=== PATIENT | male | born 1940 | race Caucasian/White ===

== ENCOUNTER 2016-07-12 16:12 | Inpatient (IN) | payer MEDICARE, OTHER ==
[2016-07-12] MEDS ORDERED: Furosemide 20 MG/2 ML VIAL IVPUSH ONE (16:31)
[2016-07-12] MEDS ORDERED: Albuterol 0.083% 2.5 MG/3 ML Neb Soln NEB PRN (17:20)
[2016-07-12] MEDS ORDERED: traZODone 50 MG Tab PO PRN (17:20)
[2016-07-12] MEDS ORDERED: ALPRAZolam 0.5 MG Tab PO PRN (17:20)
[2016-07-12] MEDS ORDERED: Polyethylene Glycol 3350 Powder 17 GM Packet PO PRN (17:20)
[2016-07-12] MEDS: Albuterol 0.083% 2.5 MG/3 ML Neb Soln NEB SCH (18:54)
--- NOTE | 2016-07-12 19:31 | PCM.HP ---
H&P History of Present Illness - General Date of Service: 07/12/16 Admit Problem/Dx: Admission Diagnosis/Problem Admission Diagnosis/Problem Anemia Source of Information: Patient History Limitations: Reports: No limitations - History of Present Illness Initial Comments - Free Text/Narative: Mr. Walter is a 76 yo male with a presumed chronic GI bleeding for which he has previously received a transfusion of 5 units of blood with additional PMH of hypertension, CHF, atrial fibrillation, severe COPD, TANVI, hyperlipidemia, restless leg syndrome, peripheral neuropathy, CVA, BPH, and osteoarthritis who presented to clinic today for an INR check and requested a hemoglobin check as well. He has been increasingly pale over the past couple weeks leading his to believe he was anemic. He admits that his breathing has been worse as well and that his functional status has decreased. He has had no chest pain or lightheadedness upon standing. He did have a black stool about 6 weeks ago after his last blood transfusion but none since. He has seen GI and both EGD and colonoscopy were discussed. After reviewing the risks and benefits, he has elected not to proceed with this. Instead, he has chosen to do intermittent transfusions. His last was 6 weeks ago and his hemoglobin was most recently checked around that time. - Related Data Allergies/Adverse Reactions: Allergies Allergy/AdvReac Type Severity Reaction Status Date / Time No Known Allergies Allergy Verified 07/12/16 16:38 Home Medications: Home Meds Albuterol [Ventolin HFA] 2 puff INH Q4H PRN 08/12/13 [History] Aspirin 325 mg PO DAILY 08/12/13 [History] Benazepril [Lotensin] 20 mg PO DAILY 08/12/13 [History] Clotrimazole/Betamethasone Dip [Lotrisone Cream] 1 applic TOP BID 08/12/13 [ History] Furosemide [Lasix] 80 tab PO DAILY 08/12/13 [History] Pramipexole [Mirapex] 2 mg PO BEDTIME 08/12/13 [History] Tiotropium [Spiriva] 18 mcg INH DAILY 08/12/13 [History] Albuterol Sulfate 2.5 mg NEB DAILY PRN 05/06/15 [History] Amitriptyline [Elavil] 10 mg PO BEDTIME 05/06/15 [History] Arformoterol [Brovana] 15 mcg NEB BID 05/06/15 [History] Budesonide [Pulmicort] 0.5 mg NEB BID 05/06/15 [History] Omeprazole [Prilosec] 20 mg PO DAILY 05/06/15 [History] Simvastatin [Zocor] 10 mg PO BEDTIME 05/06/15 [History] Theophylline [Vadim-24] 200 mg PO BID 05/06/15 [History] ALPRAZolam [Xanax] 0.5 mg PO TID PRN 02/03/16 [History] Diltiazem HCl [Diltiazem 12Hr ER] 120 mg DAILY 02/03/16 [History] Ipratropium [Atrovent] 0.5 mg NEB Q6HRRT 02/03/16 [History] Tamsulosin [Flomax] 0.4 mg BEDTIME 02/03/16 [History] Warfarin [Coumadin] 5 mg ASDIRECTED 02/03/16 [History] predniSONE [Prednisone] 5 mg PO DAILY 02/03/16 [History] traZODone HCl [Trazodone HCl] 25 mg BEDTIME PRN 02/03/16 [History] Cyanocobalamin (Vitamin B-12) [B-12] 1,000 mcg PO DAILY 06/01/16 [History] Ferrous Sulfate 325 mg PO DAILY 06/01/16 [History] Furosemide [Lasix] 40 mg PO DAILY@1200 06/01/16 [History] Melatonin 10 mg PO BEDTIME 06/01/16 [History] Polyethylene Glycol 3350 [MiraLAX] 17 gm PO DAILY PRN 06/01/16 [History] Pramipexole Di-HCl [Mirapex] 1 mg PO BEDTIME 06/01/16 [History] Cyanocobalamin (Vitamin B-12) [Cyanocobalamin Injection] 1,000 mcg IJ WEEKLY [History] Past Medical History HEENT History: Reports: None Cardiovascular History: Reports: Afib, Heart Failure, High cholesterol, Hypertension Respiratory History: Reports: COPD, Sleep apnea, SOB Gastrointestinal History: Reports: GERD Genitourinary History: Reports: BPH Musculoskeletal History: Reports: Arthritis, Back pain, chronic Neurological History: Reports: CVA, Neuropathy, peripheral, Other (see below) ( restless leg syndrome) Psychiatric History: Reports: Depression, Other (see below) Other Psychiatric History: Sleeping disorder, has a cpap Endocrine/Metabolic History: Reports: Obesity/BMI 30+ Hematologic History: Reports: None Immunologic History: Reports: None Oncologic (Cancer) History: Reports: None Dermatologic History: Reports: None - Infectious Disease History Infectious Disease History: Reports: None - Past Surgical History HEENT Surgical History: Reports: Cataract surgery, Tonsillectomy Musculoskeletal Surgical History: Reports: Shoulder surgery, Other (see below) ( knee surgery) Social & Family History - Family History Cardiac: Reports: CAD Oncologic: Reports: Colon - Tobacco Use Smoking Status *Q: Former Smoker Years of Tobacco use: 50 Packs/Tins Daily: 2 - Caffeine Use Caffeine Use: Reports: None - Alcohol Use Alcohol Use History: Yes Days Per Week of Alcohol Use: 0 Alcohol Use in Last Twelve Months: No - Recreational Drug Use Recreational Drug Use: No - Living Situation & Occupation Living situation: Reports: , with significant other Occupation: retired H&P Review of Systems - Review of Systems: Review Of Systems: See Below General: Reports: no symptoms HEENT: Reports: no symptoms Pulmonary: Reports: Shortness of Breath. Denies: Wheezing, Cough Cardiovascular: Reports: no symptoms Gastrointestinal: Reports: No symptoms Genitourinary: Reports: no symptoms Musculoskeletal: Reports: no symptoms Skin: Reports: no symptoms Psychiatric: Reports: no symptoms Neurological: Reports: No Symptoms Hematologic/Lymphatic: Reports: no symptoms Exam - Exam Exam: See Below - Vital Signs Vital Signs: Last Vital Signs Temp 36.6 C 07/12/16 18:48 Pulse 72 07/12/16 19:00 Resp 20 07/12/16 19:00 BP 118/59 L 07/12/16 19:00 Pulse Ox 92 L 07/12/16 16:38 Weight: 134.173 kg - Exam General: alert, oriented, cooperative, other (very pale) HEENT: Conjunctiva clear, Mucosa moist & pink, Pupils equal, Pupils reactive Neck: supple, trachea midline. No: lymphadenopathy, thyromegaly Lungs: Clear to auscultation, Normal respiratory effort, Decreased breath sounds Cardiovascular: regular rate, normal S1, normal S2, irregular rhythm. No: systolic murmur, diastolic murmur Abdomen: normal bowel sounds, soft. No: distention, tenderness Extremities: normal inspection, normal pulses, edema (2+ bilaterally) Skin: warm, dry, intact Neurological: cranial nerves intact, normal speech. No: focal deficit - Patient Data Lab Results last 24 hrs: Laboratory Results - last 24 hr 07/12/16 Range/Units 16:55 Blood Type B POSITIVE Gel Antibody Screen Negative Crossmatch See Detail *Q Meaningful Use (ADM) - VTE *Q VTE Criteria *Q: VTE Anticoagulation Contraindications: Med/tx not indicated/need - Stroke *Q Stroke Criteria *Q: - AMI *Q AMI Criteria *Q: - Problem List (1) Symptomatic anemia SNOMED Code(s): 144609105 ICD Code: D64.9 - ANEMIA, UNSPECIFIED Status: Acute Current Visit: Yes Problem Details: - With the patient's history and a hemoglobin of 6.2, I did not feel it would be acceptable to wait until tomorrow for his transfusion. - Suspect the anemia is secondary to chronic GI bleeding. The patient has seen GI and has decided not to go ahead with any further evaluation to identify the cause. - Patient will receive 2 units PRBCs tonight. Recheck CBC in am to determine whether he can be discharged tomorrow. - Continue iron supplementation. (2) Hypertension SNOMED Code(s): 98599595 ICD Code: I10 - ESSENTIAL (PRIMARY) HYPERTENSION Status: Chronic Current Visit: Yes Problem Details: - BP slightly low on admission. - Will hold all antihypertensives for now. - Will likely need to restart his diltiazem in the morning to avoid any risk of putting him into a-fib with RVR. - Transfusion should improve his BP as well. Will fluid bolus PRN. Qualifiers: Hypertension type: essential hypertension Qualified Code(s): I10 - Essential (primary) hypertension (3) Heart failure SNOMED Code(s): 27303412 ICD Code: I50.9 - HEART FAILURE, UNSPECIFIED Status: Chronic Current Visit: Yes Problem Details: - No evidence of CHF exacerbation. - Will give a dose of IV lasix between the 2 units. - Will continue home PO lasix. - Otherwise, hold other medications until tomorrow am. Will add them back as able depending on his BPs. Qualifiers: Heart failure type: diastolic Heart failure chronicity: chronic Qualified Code(s): I50.32 - Chronic diastolic (congestive) heart failure (4) Atrial fibrillation SNOMED Code(s): 64827205 ICD Code: I48.91 - UNSPECIFIED ATRIAL FIBRILLATION Status: Chronic Current Visit: Yes Problem Details: - Rate currently controlled. - INR is therapeutic. - Continue warfarin. - Restart diltiazem in the am. Qualifiers: Atrial fibrillation type: unspecified Qualified Code(s): I48.91 - Unspecified atrial fibrillation (5) COPD (chronic obstructive pulmonary disease) SNOMED Code(s): 00958912 ICD Code: J44.9 - CHRONIC OBSTRUCTIVE PULMONARY DISEASE, UNSPECIFIED Status : Chronic Current Visit: Yes Problem Details: - Severe COPD, which is oxygen dependent. - Continue oxygen supplementation. - Continue home inhaler regimen, prednisone, and theophylline. Qualifiers: COPD type: unspecified COPD Qualified Code(s): J44.9 - Chronic obstructive pulmonary disease, unspecified (6) TANVI (obstructive sleep apnea) SNOMED Code(s): 68170557 ICD Code: G47.33 - OBSTRUCTIVE SLEEP APNEA (ADULT) (PEDIATRIC) Status: Chronic Current Visit: Yes Problem Details: - Will have his bring his CPAP in. (7) Hyperlipidemia SNOMED Code(s): 66386958 ICD Code: E78.5 - HYPERLIPIDEMIA, UNSPECIFIED Status: Chronic Current Visit: Yes Problem Details: Continue simvastatin. Qualifiers: Hyperlipidemia type: unspecified Qualified Code(s): E78.5 - Hyperlipidemia , unspecified (8) Restless leg syndrome SNOMED Code(s): 80262938 ICD Code: G25.81 - RESTLESS LEGS SYNDROME Status: Chronic Current Visit: Yes Problem Details: - Continue mirapex. (9) Peripheral neuropathy SNOMED Code(s): 761665820 ICD Code: G62.9 - POLYNEUROPATHY, UNSPECIFIED Status: Chronic Current Visit: Yes Problem Details: - Currently not on any medications for this. Qualifiers: Peripheral neuropathy type: polyneuropathy, unspecified Qualified Code(s): G62.9 - Polyneuropathy, unspecified (10) Cerebrovascular disease SNOMED Code(s): 14373157 ICD Code: I67.9 - CEREBROVASCULAR DISEASE, UNSPECIFIED Status: Chronic Current Visit: Yes Problem Details: - H/O stroke without current symptoms. - Hold ASA for now. Will look into whether he truly needs the full dose aspirin , especially in the setting of his presumed GI bleed. (11) BPH (benign prostatic hyperplasia) SNOMED Code(s): 003677779, 593847334 ICD Code: N40.0 - BENIGN PROSTATIC HYPERPLASIA WITHOUT LOWER URINRY TRACT SYMP Status: Chronic Current Visit: Yes Problem Details: - Hold flomax for now. - Consider restarting if BP improves. Qualifiers: Prostatic enlargement morphology: unspecified morphology Lower urinary tract symptom presence: symptoms absent Qualified Code(s): N40.0 - Benign prostatic hyperplasia without lower urinary tract symptoms (12) Osteoarthritis SNOMED Code(s): 725493911 ICD Code: M19.90 - UNSPECIFIED OSTEOARTHRITIS, UNSPECIFIED SITE Status: Chronic Current Visit: Yes Problem Details: - No current symptoms. - Tylenol PRN. Qualifiers: Osteoarthritis location: unspecified site Osteoarthritis type: unspecified Qualified Code(s): M19.90 - Unspecified osteoarthritis, unspecified site (13) Insomnia SNOMED Code(s): 711031920 ICD Code: G47.00 - INSOMNIA, UNSPECIFIED Status: Chronic Current Visit: Yes Problem Details: - Continue amitriptyline, trazodone, and PRN xanax. Qualifiers: Insomnia type: unspecified Qualified Code(s): G47.00 - Insomnia, unspecified Problem List Initiated/Reviewed/Updated: Yes Orders Last 24hrs: Active Orders 24 hr Category Date Time Status Admission Status [Patient Status] [ADT] Routine ADT 07/12/16 16:26 Active Notify Provider Vital Signs [RC] 02,06,10,14,18,22 Care 07/12/16 16:37 Active Up With Assistance [RC] 08,20 Care 07/12/16 16:36 Active VTE/DVT Education [RC] .PRN Care 07/12/16 16:38 Active Vital Signs [RC] 02,06,10,14,18,22 Care 07/12/16 16:36 Active Regular Diet [DIET] Diet 07/12/16 Dinner Active CBC WITH AUTO DIFF [HEME] AM Lab 07/13/16 05:11 Ordered RED BLOOD CELLS LP [BBK] Stat Lab 07/12/16 16:55 Results TYPE AND SCREEN [BBK] Stat Lab 07/12/16 16:55 Results ALPRAZolam [Xanax] Med 07/12/16 17:20 Active 0.25 mg PO TID PRN Albuterol [Proventil Neb Soln] Med 07/12/16 17:20 Active 2.5 mg NEB DAILY PRN Albuterol [Proventil Neb Soln] Med 07/12/16 19:00 Active 2.5 mg NEB Q6HRRT Amitriptyline [Elavil] Med 07/12/16 20:00 Active 10 mg PO BEDTIME Budesonide [Pulmicort] Med 07/12/16 20:00 Active 0.5 mg NEB BIDRT Cyanocobalamin (Vitamin B12) [Vitamin B12] Med 07/13/16 08:00 Active 1,000 mcg PO DAILY Ferrous Sulfate Med 07/13/16 08:00 Active 325 mg PO DAILY Furosemide [Lasix] Med 07/13/16 12:00 Active 40 mg PO DAILY@1200 Furosemide [Lasix] Med 07/13/16 08:00 Active 80 mg PO DAILY Ipratropium [Atrovent] Med 07/12/16 20:00 Active 0.5 mg NEB QIDRT Melatonin Med 07/12/16 20:00 Active 9 mg PO BEDTIME Omeprazole Med 07/13/16 07:00 Active 20 mg PO ACBRK Polyethylene Glycol 3350 [MiraLAX] Med 07/12/16 17:20 Active 17 gm PO DAILY PRN Pramipexole [Mirapex] Med 07/12/16 20:00 Active 2 mg PO BEDTIME Simvastatin [Zocor] Med 07/12/16 20:00 Active 10 mg PO BEDTIME Theophylline [Theophylline Anhydrous] Med 07/12/16 20:00 Active 200 mg PO BID Tiotropium [Spiriva HandiHaler] Med 07/13/16 08:00 Active 18 mcg INH DAILY Warfarin [Coumadin] Med 07/12/16 20:00 Active 5 mg PO BEDTIME predniSONE Med 07/13/16 08:00 Active 5 mg PO DAILY traZODone Med 07/12/16 17:20 Active 25 mg PO BEDTIME PRN Anticoagulation Contraindications VTE [AST] Per Unit Oth 07/12/16 16:36 Ordered Routine Blood Transfusion Reflex Orders [OM.PC] Routine Oth 07/12/16 16:31 Ordered DVT/VTE Prophylaxis Reflex [OM.PC] Routine Oth 07/12/16 16:36 Ordered Transfuse Red Blood Cells [COMM] Routine Oth 07/12/16 16:31 Ordered Resuscitation Status Routine Resus Stat 07/12/16 16:36 Ordered Medication Orders Albuterol (Proventil Neb Soln) 2.5 mg NEB Q6HRRT JEAN-PAUL Last Admin: 07/12/16 18:54 Dose: 2.5 mg Albuterol (Proventil Neb Soln) 2.5 mg NEB DAILY PRN PRN Reason: Dyspnea Alprazolam (Xanax) 0.25 mg PO TID PRN PRN Reason: Anxiety Amitriptyline HCl (Elavil) 10 mg PO BEDTIME JEAN-PAUL Budesonide (Pulmicort) 0.5 mg NEB BIDRT JEAN-PAUL Cyanocobalamin (Vitamin B12) 1,000 mcg PO DAILY JEAN-PAUL Ferrous Sulfate (Ferrous Sulfate) 325 mg PO DAILY JEAN-PAUL Furosemide (Lasix) 40 mg PO DAILY@1200 JEAN-PAUL Furosemide (Lasix) 80 mg PO DAILY JEAN-PAUL Ipratropium [place] (Atrovent) 0.5 mg NEB QIDRT JEAN-PAUL Melatonin (Melatonin) 9 mg PO BEDTIME JEAN-PAUL Omeprazole (Omeprazole) 20 mg PO ACBRK JEAN-PAUL Polyethylene Glycol (Miralax) 17 gm PO DAILY PRN PRN Reason: Constipation Pramipexole Dihydrochloride (Mirapex) 2 mg PO BEDTIME JEAN-PAUL Prednisone (Prednisone) 5 mg PO DAILY JEAN-PAUL Simvastatin (Zocor) 10 mg PO BEDTIME JEAN-PAUL Theophylline (Theophylline Anhydrous) 200 mg PO BID JEAN-PAUL Tiotropium [place] (Spiriva Handihaler) 18 mcg INH DAILY JEAN-PAUL Trazodone HCl (Trazodone) 25 mg PO BEDTIME PRN PRN Reason: Insomnia Warfarin Sodium (Coumadin) 5 mg PO BEDTIME JEAN-PAUL Assessment/Plan Comment:: 76 yo male admitted for a blood transfusion for management of symptomatic anemia in the setting of an inability to get this done in a timely manner as an outpatient. Will transfuse 2 units and recheck in the am. Otherwise, see details under problems above. Patient will be admitted under observation as I suspect that he will be dismissed tomorrow. No indication for VTE prophylaxis as he has a therapeutic INR. Patient is DNR/DNI as discussed on admission.
[2016-07-12] MEDS: Budesonide 0.5 MG/2 ML Neb Susp NEB SCH (19:47)
[2016-07-12] MEDS: Melatonin 3 MG Tab PO SCH (19:47)
[2016-07-12] MEDS: Pramipexole 0.5 MG Tab PO SCH (19:47)
[2016-07-12] MEDS: Amitriptyline 10 MG Tab PO SCH (19:47)
[2016-07-12] MEDS: Simvastatin 10 MG Tab PO SCH (19:47)
[2016-07-12] MEDS: Ipratropium 0.02% 0.5 MG/2.5 ML Neb Soln NEB SCH (19:47)
[2016-07-12] MEDS: Warfarin 5 MG Tab PO SCH (19:47)
[2016-07-12] MEDS ORDERED: Non-Formulary Medication 1 Each (Melatonin [Melatonin] 10 MG) PO SCH (20:00)
[2016-07-12] MEDS ORDERED: Furosemide 40 MG/4 ML VIAL ONE (21:26)
[2016-07-12] MEDS: THEOPHYLLINE 100 MG PO SCH (21:26)
[2016-07-13] MEDS: Albuterol 0.083% 2.5 MG/3 ML Neb Soln NEB SCH ×4 (01:19→21:02)
[2016-07-13] MEDS ORDERED: Omeprazole 20 MG Cap.CR PO SCH (07:00)
[2016-07-13] MEDS: Budesonide 0.5 MG/2 ML Neb Susp NEB SCH ×2 (07:21→21:00)
[2016-07-13] MEDS: Ipratropium 0.02% 0.5 MG/2.5 ML Neb Soln NEB SCH ×4 (07:21→21:00)
[2016-07-13] MEDS ORDERED: ALPRAZolam 0.25 MG Tab PO PRN (08:38)
[2016-07-13] MEDS ORDERED: Furosemide 20 MG/2 ML VIAL IVPUSH ONE ×2 (09:11→13:15)
[2016-07-13] MEDS: Diltiazem 120 MG Cap.CD PO SCH (09:24)
[2016-07-13] MEDS: Ferrous Sulfate 325 MG Tab PO SCH (09:25)
[2016-07-13] MEDS: Furosemide 40 MG Tab PO SCH (09:25)
[2016-07-13] MEDS: Cyanocobalamin (Vitamin B12) 1,000 MCG Tab PO SCH (09:25)
[2016-07-13] MEDS: predniSONE 5 MG Tab PO SCH (09:25)
[2016-07-13] MEDS: Tiotropium Inhaler 18 MCG Inhalation Powder Cap Kit of 5 INH SCH (09:25)
[2016-07-13] MEDS: THEOPHYLLINE 100 MG PO SCH ×2 (09:25→21:00)
[2016-07-13] MEDS ORDERED: Furosemide 40 MG Tab PO SCH (12:00)
--- NOTE | 2016-07-13 12:57 | PCM.PN ---
- General Info Date of Service: 07/13/16 Subjective Update: Feels the same as yesterday. Did not sleep well so is quite tired today. Otherwise, no new complaints. - Review of Systems General: Reports: No Symptoms HEENT: Reports: no symptoms Pulmonary: Reports: no symptoms Cardiovascular: Reports: No Symptoms Gastrointestinal: Reports: No symptoms Genitourinary: Reports: no symptoms Musculoskeletal: Reports: no symptoms Skin: Reports: no symptoms - Patient Data Vitals - most recent: Last Vital Signs Temp 37.7 C 07/13/16 11:35 Pulse 78 07/13/16 11:35 Resp 22 H 07/13/16 11:35 BP 130/64 07/13/16 11:35 Pulse Ox 96 07/13/16 06:00 Weight - most recent: 135.533 kg I&O - last 24 hours: Intake & Output 07/12/16 07/13/16 07/13/16 22:59 06:59 14:59 Intake Total 918 666 8965 Output Total 1575 975 Balance 657 -1275 335 Lab Results last 24 hrs: Laboratory Results - last 24 hr 07/12/16 07/13/16 Range/Units 16:55 06:35 WBC 9.7 (4.0-10.0) x10^3/uL RBC 2.84 L (4.5-6.0) x10^6/uL Hgb 6.9 L* (14.0-18.0) g/dL Hct 23.9 L (40.0-52.0) % MCV 84.2 (78.0-93.0) fL MCH 24.3 L (26.0-32.0) pg MCHC 28.9 L (32.0-36.0) g/dL RDW Coeff of Ignacio 15.9 H (10.0-15.0) % Plt Count 447 H (130-400) x10^3/uL Add Manual Diff Yes Neutrophils % (Manual) 72 (50-80) % Band Neutrophils % 6 (0-6) % Lymphocytes % (Manual) 21 L (25-50) % Eosinophils % (Manual) 1 (0-4) % Platelet Estimate Adequate Hypochromasia 3+ marked H Blood Type B POSITIVE Gel Antibody Screen Negative Crossmatch See Detail Med Orders - Current: Current Medications Albuterol (Proventil Neb Soln) 2.5 mg NEB DAILY PRN PRN Reason: Dyspnea Albuterol (Proventil Neb Soln) 2.5 mg NEB QIDRT [facility] Alprazolam (Xanax) 0.25 mg PO TID PRN PRN Reason: Anxiety Amitriptyline HCl (Elavil) 10 mg PO BEDTIME [facility] Last Admin: 07/12/16 19:47 Dose: 10 mg Budesonide (Pulmicort) 0.5 mg NEB BIDRT [facility] Last Admin: 07/13/16 07:21 Dose: 0.5 mg Cyanocobalamin (Vitamin B12) 1,000 mcg PO DAILY [facility] Last Admin: 07/13/16 09:25 Dose: 1,000 mcg Diltiazem HCl (Cardizem Cd) 120 mg PO DAILY [facility] Last Admin: 07/13/16 09:24 Dose: 120 mg Ferrous Sulfate (Ferrous Sulfate) 325 mg PO DAILY [facility] Last Admin: 07/13/16 09:25 Dose: 325 mg Furosemide (Lasix) 40 mg PO DAILY@1200 [facility] Last Admin: 07/13/16 12:03 Dose: 40 mg Furosemide (Lasix) 80 mg PO DAILY [facility] Last Admin: 07/13/16 09:25 Dose: 80 mg Ipratropium [place] (Atrovent) 0.5 mg NEB QIDRT [facility] Last Admin: 07/13/16 10:54 Dose: 0.5 mg Melatonin (Melatonin) 9 mg PO BEDTIME [facility] Last Admin: 07/12/16 19:47 Dose: 9 mg Omeprazole (Omeprazole) 20 mg PO DAILY@0700 [facility] Polyethylene Glycol (Miralax) 17 gm PO DAILY PRN PRN Reason: Constipation Pramipexole Dihydrochloride (Mirapex) 2 mg PO BEDTIME [facility] Last Admin: 07/12/16 19:47 Dose: 2 mg Prednisone (Prednisone) 5 mg PO DAILY [facility] Last Admin: 07/13/16 09:25 Dose: 5 mg Simvastatin (Zocor) 10 mg PO BEDTIME [facility] Last Admin: 07/12/16 19:47 Dose: 10 mg Theophylline (Theophylline Anhydrous) 200 mg PO BID [facility] Last Admin: 07/13/16 09:25 Dose: 200 mg Tiotropium [place] (Spiriva Handihaler) 18 mcg INH DAILY [facility] Last Admin: 07/13/16 09:25 Dose: 18 mcg Trazodone HCl (Trazodone) 25 mg PO BEDTIME PRN PRN Reason: Insomnia Last Admin: 07/12/16 21:25 Dose: 25 mg Warfarin Sodium (Coumadin) 5 mg PO BEDTIME [facility] Last Admin: 07/12/16 19:47 Dose: 5 mg Discontinued Medications Albuterol (Proventil Neb Soln) 2.5 mg NEB Q6HRRT [facility] Last Admin: 07/13/16 07:20 Dose: 2.5 mg Alprazolam (Xanax) 0.25 mg PO TID PRN PRN Reason: Anxiety Last Admin: 07/12/16 23:57 Dose: 0.25 mg Furosemide (Lasix) 20 mg IVPUSH ONETIME ONE Stop: 07/12/16 16:32 Last Admin: 07/12/16 23:25 Dose: 20 mg Furosemide (Lasix) Confirm Administered Dose 40 mg .ROUTE .STK-MED ONE Stop: 07/12/16 21:27 Last Admin: 07/12/16 21:41 Dose: Not Given Furosemide (Lasix) 20 mg IVPUSH ONETIME ONE Stop: 07/13/16 09:12 Non-Formulary Medication (Melatonin [Melatonin]) 10 mg PO BEDTIME [facility] Omeprazole (Omeprazole) 20 mg PO ACBRK [facility] Last Admin: 07/13/16 06:19 Dose: 20 mg - Exam General: alert, cooperative, no acute distress HEENT: Pupils equal, Pupils reactive, Mucous membr. moist/pink Neck: supple, no thyromegaly. No: lymphadenopathy Lungs: Clear to auscultation, Normal respiratory effort Cardiovascular: Regular Rate, No Murmurs, Irregular Rhythm Abdomen: bowel sounds present, soft, no tenderness, no distension Extremities: normal pulses, edema (2+ bilaterally) Skin: warm, dry, intact - Problem List & Annotations (1) Symptomatic anemia SNOMED Code(s): 804728534 Code(s): D64.9 - ANEMIA, UNSPECIFIED Status: Acute Current Visit: Yes Annotation/Comment:: - Patient's hemoglobin did not respond appropriately to the 2 units. Do note that it was done at 2 different labs so the results cannot be directly compared. - Discussed option to transfer to [place] for further discussion and work-up with GI and pulmonology consults vs. transfusing another 2 units today and seeing what his hemoglobin does. - He prefers the latter. We will give him 2 units today and recheck his CBC this afternoon. - Continue iron supplementation. (2) Hypertension SNOMED Code(s): 51279981 Code(s): I10 - ESSENTIAL (PRIMARY) HYPERTENSION Status: Chronic Current Visit: Yes Qualifiers: Hypertension type: essential hypertension Qualified Code(s): I10 - Essential (primary) hypertension Annotation/Comment:: - BP better this admission. - Will restart his diltiazem today. - Will add back other antihypertensives as able. (3) Heart failure SNOMED Code(s): 35050562 Code(s): I50.9 - HEART FAILURE, UNSPECIFIED Status: Chronic Current Visit : Yes Qualifiers: Heart failure type: diastolic Heart failure chronicity: chronic Qualified Code(s): I50.32 - Chronic diastolic (congestive) heart failure Annotation/Comment:: - No evidence of CHF exacerbation. - Will give another dose of IV lasix between the 2 units. - Will continue home PO lasix. - Otherwise, hold other antihypertensives except for diltiazem. Will add them back as able depending on his BPs. (4) Atrial fibrillation SNOMED Code(s): 48134386 Code(s): I48.91 - UNSPECIFIED ATRIAL FIBRILLATION Status: Chronic Current Visit: Yes Qualifiers: Atrial fibrillation type: unspecified Qualified Code(s): I48.91 - Unspecified atrial fibrillation Annotation/Comment:: - Rate currently controlled. - INR is therapeutic. - Continue warfarin. - Restart diltiazem today. (5) COPD (chronic obstructive pulmonary disease) SNOMED Code(s): 35243801 Code(s): J44.9 - CHRONIC OBSTRUCTIVE PULMONARY DISEASE, UNSPECIFIED Status : Chronic Current Visit: Yes Qualifiers: COPD type: unspecified COPD Qualified Code(s): J44.9 - Chronic obstructive pulmonary disease, unspecified Annotation/Comment:: - Severe COPD, which is oxygen dependent. - Continue oxygen supplementation. - Continue home inhaler regimen, prednisone, and theophylline. (6) TANVI (obstructive sleep apnea) SNOMED Code(s): 19719613 Code(s): G47.33 - OBSTRUCTIVE SLEEP APNEA (ADULT) (PEDIATRIC) Status: Chronic Current Visit: Yes Annotation/Comment:: - On CPAP. (7) Hyperlipidemia SNOMED Code(s): 17799566 Code(s): E78.5 - HYPERLIPIDEMIA, UNSPECIFIED Status: Chronic Current Visit: Yes Qualifiers: Hyperlipidemia type: unspecified Qualified Code(s): E78.5 - Hyperlipidemia , unspecified Annotation/Comment:: Continue simvastatin. (8) Restless leg syndrome SNOMED Code(s): 21085000 Code(s): G25.81 - RESTLESS LEGS SYNDROME Status: Chronic Current Visit: Yes Annotation/Comment:: - Continue mirapex. (9) Peripheral neuropathy SNOMED Code(s): 889797166 Code(s): G62.9 - POLYNEUROPATHY, UNSPECIFIED Status: Chronic Current Visit: Yes Qualifiers: Peripheral neuropathy type: polyneuropathy, unspecified Qualified Code(s): G62.9 - Polyneuropathy, unspecified Annotation/Comment:: - Currently not on any medications for this. (10) Cerebrovascular disease SNOMED Code(s): 98723230 Code(s): I67.9 - CEREBROVASCULAR DISEASE, UNSPECIFIED Status: Chronic Current Visit: Yes Annotation/Comment:: - H/O stroke without current symptoms. - Hold ASA for now. Will look into whether he truly needs the full dose aspirin , especially in the setting of his presumed GI bleed. (11) BPH (benign prostatic hyperplasia) SNOMED Code(s): 690077651, 646773831 Code(s): N40.0 - BENIGN PROSTATIC HYPERPLASIA WITHOUT LOWER URINRY TRACT SYMP Status: Chronic Current Visit: Yes Qualifiers: Prostatic enlargement morphology: unspecified morphology Lower urinary tract symptom presence: symptoms absent Qualified Code(s): N40.0 - Benign prostatic hyperplasia without lower urinary tract symptoms Annotation/Comment:: - Hold flomax for now. - Consider restarting if BP improves. (12) Osteoarthritis SNOMED Code(s): 427675532 Code(s): M19.90 - UNSPECIFIED OSTEOARTHRITIS, UNSPECIFIED SITE Status: Chronic Current Visit: Yes Qualifiers: Osteoarthritis location: unspecified site Osteoarthritis type: unspecified Qualified Code(s): M19.90 - Unspecified osteoarthritis, unspecified site Annotation/Comment:: - No current symptoms. - Tylenol PRN. (13) Insomnia SNOMED Code(s): 700521991 Code(s): G47.00 - INSOMNIA, UNSPECIFIED Status: Chronic Current Visit: Yes Qualifiers: Insomnia type: unspecified Qualified Code(s): G47.00 - Insomnia, unspecified Annotation/Comment:: - Continue amitriptyline, trazodone, and PRN xanax. - Problem List Review Problem List Initiated/Reviewed/Updated: Yes - My Orders Last 24 Hours: My Active Orders 07/12/16 16:26 Admission Status [Patient Status] [ADT] Routine 07/12/16 16:31 Blood Transfusion Reflex Orders [OM.PC] Routine Transfuse Red Blood Cells [COMM] Routine 07/12/16 16:36 Up With Assistance [RC] 08,20 Vital Signs [RC] 02,06,10,14,18,22 Anticoagulation Contraindications VTE [AST] Per Unit Routine DVT/VTE Prophylaxis Reflex [OM.PC] Routine Resuscitation Status Routine 07/12/16 16:37 Notify Provider Vital Signs [RC] 02,06,10,14,18,22 07/12/16 16:38 VTE/DVT Education [RC] .PRN 07/12/16 16:55 RED BLOOD CELLS LP [BBK] Stat TYPE AND SCREEN [BBK] Stat 07/12/16 17:20 Albuterol [Proventil Neb Soln] 2.5 mg NEB DAILY PRN Polyethylene Glycol 3350 [MiraLAX] 17 gm PO DAILY PRN traZODone 25 mg PO BEDTIME PRN 07/12/16 20:00 Amitriptyline [Elavil] 10 mg PO BEDTIME Budesonide [Pulmicort] 0.5 mg NEB BIDRT Ipratropium [Atrovent] 0.5 mg NEB QIDRT Melatonin 9 mg PO BEDTIME Pramipexole [Mirapex] 2 mg PO BEDTIME Simvastatin [Zocor] 10 mg PO BEDTIME Theophylline [Theophylline Anhydrous] 200 mg PO BID Warfarin [Coumadin] 5 mg PO BEDTIME 07/12/16 Dinner Regular Diet [DIET] 07/13/16 08:00 Cyanocobalamin (Vitamin B12) [Vitamin B12] 1,000 mcg PO DAILY Ferrous Sulfate 325 mg PO DAILY Furosemide [Lasix] 80 mg PO DAILY Tiotropium [Spiriva HandiHaler] 18 mcg INH DAILY predniSONE 5 mg PO DAILY 07/13/16 08:29 Daily Weight [Height and Weight] [RC] 07 07/13/16 08:38 ALPRAZolam [Xanax] 0.25 mg PO TID PRN 07/13/16 09:10 Transfuse Red Blood Cells [COMM] Routine 07/13/16 09:16 Blood Transfusion Reflex Orders [OM.PC] Routine 07/13/16 09:30 Diltiazem [Cardizem CD] 120 mg PO DAILY 07/13/16 09:52 Blood Transfusion Reflex Orders [OM.PC] Routine 07/13/16 12:00 Furosemide [Lasix] 40 mg PO DAILY@1200 07/13/16 14:30 HEMOGLOBIN [HEME] Timed 07/13/16 15:00 Albuterol [Proventil Neb Soln] 2.5 mg NEB QIDRT 07/14/16 07:00 Omeprazole 20 mg PO DAILY@0700 - Assessment Assessment:: 76 yo male admitted under observation to undergo blood transfusion. Not really any better from a symptom or lab standpoint this am. - Plan Plan:: Will transfuse 2 units again and recheck Hgb this pm. Otherwise, see details under problems above. Patient will remain under observation for now as there is a chance he will be dismissed later; if he stays another night, will switch to acute. Reviewed again his complicated medical scenario. A progressive GI bleed is more life threatening in the immediate time period but having an EGD and/or colonoscopy does place him at risk for needing to be intubated and on a ventilator. I did review his case again with his professor of art, Dr. Olivera, and she agrees. He prefers to get the additional units today and see what happens with his hemoglobin after that. No indication for VTE prophylaxis as he has a therapeutic INR. Patient is DNR/DNI as discussed on admission.
[2016-07-13] MEDS ORDERED: Acetaminophen 325 MG Tab PO PRN (13:05)
--- NOTE | 2016-07-13 17:58 | PCM.SN ---
- Free Text/Narrative Note: Hemoglobin responded appropriately to the second 2 units. His UOP has been great. Will have him stay overnight since it took 4 units to improve his hemoglobin. Therefore, will also change his status to acute. Recheck CBC in the am. Anticipate dismissal tomorrow unless his hemoglobin drops again.
[2016-07-13] MEDS: Pramipexole 0.5 MG Tab PO SCH (20:59)
[2016-07-13] MEDS: Melatonin 3 MG Tab PO SCH (20:59)
[2016-07-13] MEDS: Simvastatin 10 MG Tab PO SCH (21:00)
[2016-07-13] MEDS: Amitriptyline 10 MG Tab PO SCH (21:00)
[2016-07-13] MEDS: Warfarin 5 MG Tab PO SCH (21:00)
[2016-07-14 06:31] VITALS: BP 148/63
[2016-07-14] MEDS ORDERED: Omeprazole 20 MG Cap.CR PO SCH (07:00)
[2016-07-14] MEDS: Albuterol 0.083% 2.5 MG/3 ML Neb Soln NEB SCH (07:20)
[2016-07-14] MEDS: Budesonide 0.5 MG/2 ML Neb Susp NEB SCH (07:21)
[2016-07-14] MEDS: Ipratropium 0.02% 0.5 MG/2.5 ML Neb Soln NEB SCH (07:21)
[2016-07-14] MEDS: predniSONE 5 MG Tab PO SCH (07:51)
[2016-07-14] MEDS: Ferrous Sulfate 325 MG Tab PO SCH (07:51)
[2016-07-14] MEDS: Diltiazem 120 MG Cap.CD PO SCH (07:52)
[2016-07-14] MEDS: Cyanocobalamin (Vitamin B12) 1,000 MCG Tab PO SCH (07:54)
[2016-07-14] MEDS: THEOPHYLLINE 100 MG PO SCH (07:54)
[2016-07-14] MEDS: Furosemide 40 MG Tab PO SCH (07:54)
[2016-07-14] MEDS: Tiotropium Inhaler 18 MCG Inhalation Powder Cap Kit of 5 INH SCH (07:55)
--- NOTE | 2016-07-14 08:37 | PCM.DCSUM1 ---
Discharge Summary - Hospital Course HPI Initial Comments: Mr. Walter is a 76 yo male who was admitted from clinic due to symptomatic anemia with a hemoglobin of 6.2 and an inability to get his transfusion done in a timely manner as an outpatient. He was not overtly symptomatic and felt his breathing was close to baseline. His had actually requested the test be done due to his pale appearance. He has a known GI bleed as the cause for his anemia and has seen GI previously. He has decided not to proceed with EGD or colonoscopy at this time. - Discharge Data Discharge Date: 07/14/16 Discharge Disposition: Home, Self-Care 01 Condition: Good - Discharge Diagnosis/Problem(s) (1) Symptomatic anemia SNOMED Code(s): 699343993 ICD Code: D64.9 - ANEMIA, UNSPECIFIED Status: Acute Current Visit: Yes Problem Details: Patient's hemoglobin did not respond initially to the first 2 units. Therefore, we did share another discussion about transfer to [place] for further discussions on work-up with GI and risk with pulmonology. He elected to receive another 2 units and see what happened with his hemoglobin. Therefore, these were given yesterday with an appropriate rise in the hemoglobin. His hemoglobin this morning has dropped slightly but <1 gram. He will follow-up on Monday for recheck hemoglobin and visit. Home iron supplementation was continued. (2) Hypertension SNOMED Code(s): 26665273 ICD Code: I10 - ESSENTIAL (PRIMARY) HYPERTENSION Status: Chronic Current Visit: Yes Problem Details: BP have improved to normal. Will restart all home medications upon discharge. Qualifiers: Hypertension type: essential hypertension Qualified Code(s): I10 - Essential (primary) hypertension (3) Heart failure SNOMED Code(s): 97115842 ICD Code: I50.9 - HEART FAILURE, UNSPECIFIED Status: Chronic Current Visit: Yes Problem Details: No evidence of CHF exacerbation. He has done well with the fluid load from the 4 units of blood. He did recieve a dose of IV lasix on the 2 days that he got the blood. He will be dismissed home on his usual medications. Qualifiers: Heart failure type: diastolic Heart failure chronicity: chronic Qualified Code(s): I50.32 - Chronic diastolic (congestive) heart failure (4) Atrial fibrillation SNOMED Code(s): 16941046 ICD Code: I48.91 - UNSPECIFIED ATRIAL FIBRILLATION Status: Chronic Current Visit: Yes Problem Details: Rate currently controlled. INR therapeutic on admission. His warfarin was continued and his diltiazem was continued without incident. 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 Oxygen supplementation was continued. His home inhaler regimen, prednisone, and theophylline were also continued. Qualifiers: COPD type: unspecified COPD Qualified Code(s): J44.9 - Chronic obstructive pulmonary disease, unspecified (6) TANVI (obstructive sleep apnea) SNOMED Code(s): 69713501 ICD Code: G47.33 - OBSTRUCTIVE SLEEP APNEA (ADULT) (PEDIATRIC) Status: Chronic Current Visit: Yes Problem Details: On CPAP. (7) Hyperlipidemia SNOMED Code(s): 49538368 ICD Code: E78.5 - HYPERLIPIDEMIA, UNSPECIFIED Status: Chronic Current Visit: Yes Problem Details: Simvastatin continued. Qualifiers: Hyperlipidemia type: unspecified Qualified Code(s): E78.5 - Hyperlipidemia , unspecified (8) Restless leg syndrome SNOMED Code(s): 32715778 ICD Code: G25.81 - RESTLESS LEGS SYNDROME Status: Chronic Current Visit: Yes Problem Details: Mirapex continued without indicent. (9) Peripheral neuropathy SNOMED Code(s): 668083934 ICD Code: G62.9 - POLYNEUROPATHY, UNSPECIFIED Status: Chronic Current Visit: Yes Problem Details: Currently not on any medications for this. Qualifiers: Peripheral neuropathy type: polyneuropathy, unspecified Qualified Code(s): G62.9 - Polyneuropathy, unspecified (10) Cerebrovascular disease SNOMED Code(s): 13299663 ICD Code: I67.9 - CEREBROVASCULAR DISEASE, UNSPECIFIED Status: Chronic Current Visit: Yes Problem Details: H/O stroke without current symptoms. Unclear why he is on the full dose aspirin. This has not been proven beneficial over low dose aspirin in stroke prevention and does have an increased risk of bleeding. Will hold off on any aspirin for now in light of the difficulty getting his hemoglobin up but consider starting the 81 mg dose when I see him in follow-up. (11) BPH (benign prostatic hyperplasia) SNOMED Code(s): 344225806, 402947320 ICD Code: N40.0 - BENIGN PROSTATIC HYPERPLASIA WITHOUT LOWER URINRY TRACT SYMP Status: Chronic Current Visit: Yes Problem Details: Flomax held but will be restarted on dismissal. Qualifiers: Prostatic enlargement morphology: unspecified morphology Lower urinary tract symptom presence: symptoms absent Qualified Code(s): N40.0 - Benign prostatic hyperplasia without lower urinary tract symptoms (12) Osteoarthritis SNOMED Code(s): 909814475 ICD Code: M19.90 - UNSPECIFIED OSTEOARTHRITIS, UNSPECIFIED SITE Status: Chronic Current Visit: Yes Problem Details: Home Tylenol continued. Qualifiers: Osteoarthritis location: unspecified site Osteoarthritis type: unspecified Qualified Code(s): M19.90 - Unspecified osteoarthritis, unspecified site (13) Insomnia SNOMED Code(s): 426649045 ICD Code: G47.00 - INSOMNIA, UNSPECIFIED Status: Chronic Current Visit: Yes Problem Details: Amitriptyline, trazodone, and PRN xanax continued. Qualifiers: Insomnia type: unspecified Qualified Code(s): G47.00 - Insomnia, unspecified - Patient Summary/Data Complications: None. Consults: None Labs Pending at D/C: None Recommended Follow-up Testing/Procedures: CBC in 4 days. Planned Operative Procedure(s) after DC: None Hospital Course: He did not respond appropriately to the first 2 units of blood. Therefore, another 2 units were given yesterday with resultant improvement in hemoglobin. His hospitalization was otherwise uncomplicated. He is feeling well this morning and is prepared for dismissal home. He will follow up on Monday. - Patient Instructions Diet: Diabetic Diet Fluid Restriction: 2000 mL Activity: As Tolerated Driving: Do Not Drive Showering/Bathing: May Shower Notify Provider of: Fever, Increased Pain, Swelling and Redness, Nausea and/or Vomiting - Discharge Plan Home Medications: Home Meds Benazepril [Lotensin] 20 mg PO DAILY 08/12/13 [History] Furosemide [Lasix] 80 tab PO DAILY 08/12/13 [History] Pramipexole [Mirapex] 2 mg PO BEDTIME 08/12/13 [History] Tiotropium [Spiriva HandiHaler] 18 mcg INH DAILY 08/12/13 [History] Albuterol Sulfate 2.5 mg NEB DAILY PRN 05/06/15 [History] Amitriptyline [Elavil] 10 mg PO BEDTIME 05/06/15 [History] Arformoterol [Brovana] 15 mcg NEB BID 05/06/15 [History] Budesonide [Pulmicort] 0.5 mg NEB BID 05/06/15 [History] Omeprazole [Prilosec] 20 mg PO ACBREAKFAST 05/06/15 [History] ALPRAZolam [Xanax] 0.5 mg PO TID PRN 02/03/16 [History] Ipratropium [Atrovent] 0.5 mg NEB QID 02/03/16 [History] Tamsulosin [Flomax] 0.4 mg PO BEDTIME 02/03/16 [History] Warfarin [Coumadin] 7.5 mg PO MO 02/03/16 [History] traZODone HCl [Trazodone HCl] 25 mg PO BEDTIME PRN 02/03/16 [History] Cyanocobalamin (Vitamin B-12) [B-12] 1,000 mcg PO DAILY 06/01/16 [History] Ferrous Sulfate 325 mg PO DAILY 06/01/16 [History] Furosemide [Lasix] 40 mg PO DAILY@1200 06/01/16 [History] Melatonin 10 mg PO BEDTIME 06/01/16 [History] Polyethylene Glycol 3350 [MiraLAX] 17 gm PO DAILY PRN 06/01/16 [History] Albuterol [[place]entolin HFA] 2 puff PO Q4H PRN 07/13/16 [History] Betamethasone/Clotrimazole [Lotrisone] 1 applic TOP BID 07/13/16 [History] Diltiazem [Cardizem CD] 120 mg PO DAILY 07/13/16 [History] Simvastatin 10 mg PO BEDTIME 07/13/16 [History] Theophylline Anhydrous [Theophylline] 200 mg PO BID 07/13/16 [History] Warfarin [Coumadin] 5 mg PO SUTUWETHFRSA 07/13/16 [History] predniSONE [Prednisone] 5 mg PO DAILY 07/13/16 [History] Referrals: Vikki Mondragon MD [Primary Care Provider] - 07/18/16 - Discharge Summary/Plan Comment DC Time >30 min.: No - General Info Date of Service: 07/14/16 Subjective Update: Feeling at baseline this morning. Dyspnea is at baseline; he denies any chest pain. He is ready to go home today. - Review of Systems General: Reports: No Symptoms HEENT: Reports: no symptoms Pulmonary: Reports: no symptoms Cardiovascular: Reports: No Symptoms Gastrointestinal: Reports: No symptoms Genitourinary: Reports: no symptoms Musculoskeletal: Reports: no symptoms Skin: Reports: no symptoms - Patient Data Vitals - Most Recent: Last Vital Signs Temp 36.7 C 07/14/16 06:00 Pulse 61 07/14/16 07:52 Resp 20 07/14/16 06:00 BP 148/63 H 07/14/16 07:52 Pulse Ox 96 07/14/16 06:00 Weight - Most Recent: 132.449 kg I&O - Last 24 hours: Intake & Output 07/13/16 07/14/16 07/14/16 22:59 06:59 14:59 Intake Total 680 400 Output Total 1300 600 Balance -620 -200 Lab Results - Last 24 hrs: Laboratory Results - last 24 hr 07/12/16 07/13/16 07/14/16 Range/Units 16:55 17:11 06:33 WBC 8.3 (4.0-10.0) x10^3/uL RBC 3.21 L (4.5-6.0) x10^6/uL Hgb 8.7 L 8.1 L (14.0-18.0) g/dL Hct 27.1 L (40.0-52.0) % MCV 84.4 (78.0-93.0) fL MCH 25.2 L (26.0-32.0) pg MCHC 29.9 L (32.0-36.0) g/dL RDW Coeff of Ignacio 15.8 H (10.0-15.0) % Plt Count 420 H (130-400) x10^3/uL Add Manual Diff Yes Neutrophils % (Manual) 70 (50-80) % Band Neutrophils % 1 (0-6) % Lymphocytes % (Manual) 14 L (25-50) % Monocytes % (Manual) 7 (2-11) % Eosinophils % (Manual) 8 H (0-4) % Platelet Estimate Adequate Hypochromasia 2+ moderate H Anisocytosis 1+ slight H Blood Type B POSITIVE Gel Antibody Screen Negative Crossmatch See Detail Med Orders - Current: Current Medications Acetaminophen (Tylenol) 650 mg PO Q6H PRN PRN Reason: Pain Albuterol (Proventil Neb Soln) 2.5 mg NEB DAILY PRN PRN Reason: Dyspnea Albuterol (Proventil Neb Soln) 2.5 mg NEB QIDRT [facility] Last Admin: 07/14/16 07:20 Dose: 2.5 mg Alprazolam (Xanax) 0.25 mg PO TID PRN PRN Reason: Anxiety Last Admin: 07/13/16 22:18 Dose: 0.25 mg Amitriptyline HCl (Elavil) 10 mg PO BEDTIME [facility] Last Admin: 07/13/16 21:00 Dose: 10 mg Budesonide (Pulmicort) 0.5 mg NEB BIDRT [facility] Last Admin: 07/14/16 07:21 Dose: 0.5 mg Cyanocobalamin (Vitamin B12) 1,000 mcg PO DAILY [facility] Last Admin: 07/14/16 07:54 Dose: 1,000 mcg Diltiazem HCl (Cardizem Cd) 120 mg PO DAILY [facility] Last Admin: 07/14/16 07:52 Dose: 120 mg Ferrous Sulfate (Ferrous Sulfate) 325 mg PO DAILY [facility] Last Admin: 07/14/16 07:51 Dose: 325 mg Furosemide (Lasix) 40 mg PO DAILY@1200 [facility] Last Admin: 07/13/16 12:03 Dose: 40 mg Furosemide (Lasix) 80 mg PO DAILY [facility] Last Admin: 07/14/16 07:54 Dose: 80 mg Ipratropium [place] (Atrovent) 0.5 mg NEB QIDRT [facility] Last Admin: 07/14/16 07:21 Dose: 0.5 mg Melatonin (Melatonin) 9 mg PO BEDTIME [facility] Last Admin: 07/13/16 20:59 Dose: 9 mg Omeprazole (Omeprazole) 20 mg PO DAILY@0700 [facility] Last Admin: 07/14/16 06:19 Dose: 20 mg Polyethylene Glycol (Miralax) 17 gm PO DAILY PRN PRN Reason: Constipation Pramipexole Dihydrochloride (Mirapex) 2 mg PO BEDTIME [facility] Last Admin: 07/13/16 20:59 Dose: 2 mg Prednisone (Prednisone) 5 mg PO DAILY [facility] Last Admin: 07/14/16 07:51 Dose: 5 mg Simvastatin (Zocor) 10 mg PO BEDTIME [facility] Last Admin: 07/13/16 21:00 Dose: 10 mg Theophylline (Theophylline Anhydrous) 200 mg PO BID [facility] Last Admin: 07/14/16 07:54 Dose: 200 mg Tiotropium [place] (Spiriva Handihaler) 18 mcg INH DAILY [facility] Last Admin: 07/14/16 07:55 Dose: 18 mcg Trazodone HCl (Trazodone) 25 mg PO BEDTIME PRN PRN Reason: Insomnia Last Admin: 07/12/16 21:25 Dose: 25 mg Warfarin Sodium (Coumadin) 5 mg PO BEDTIME [facility] Last Admin: 07/13/16 21:00 Dose: 5 mg Discontinued Medications Albuterol (Proventil Neb Soln) 2.5 mg NEB Q6HRRT [facility] Last Admin: 07/13/16 07:20 Dose: 2.5 mg Alprazolam (Xanax) 0.25 mg PO TID PRN PRN Reason: Anxiety Last Admin: 07/12/16 23:57 Dose: 0.25 mg Furosemide (Lasix) 20 mg IVPUSH ONETIME ONE Stop: 07/12/16 16:32 Last Admin: 07/12/16 23:25 Dose: 20 mg Furosemide (Lasix) Confirm Administered Dose 40 mg .ROUTE .STK-MED ONE Stop: 07/12/16 21:27 Last Admin: 07/12/16 21:41 Dose: Not Given Furosemide (Lasix) 20 mg IVPUSH ONETIME ONE Stop: 07/13/16 09:12 Last Admin: 07/13/16 13:47 Dose: Not Given Furosemide (Lasix) 20 mg IVPUSH ONETIME ONE Stop: 07/13/16 13:16 Last Admin: 07/13/16 14:01 Dose: 20 mg Non-Formulary Medication (Melatonin [Melatonin]) 10 mg PO BEDTIME [facility] Omeprazole (Omeprazole) 20 mg PO ACBRK [facility] Last Admin: 07/13/16 06:19 Dose: 20 mg - Exam Quality Assessment: Reports: supplemental oxygen General: Reports: alert, oriented, cooperative, other (cheeks are much more pink today) HEENT: Reports: Pupils equal, Pupils reactive, Mucous membr. moist/pink Neck: Reports: supple Lungs: Reports: Clear to auscultation, Normal respiratory effort Cardiovascular: Reports: Regular Rate, Regular Rhythm, No Murmurs Abdomen: Reports: bowel sounds present, soft, no tenderness, no distension Extremities: Reports: normal pulses, edema (1+ bilaterally) Skin: Reports: warm, dry, intact *Q Meaningful Use (DIS) - VTE *Q VTE Criteria *Q: VTE Anticoagulation Contraindications: Med/tx not indicated/need - Stroke *Q Stroke Criteria *Q: - AMI *Q AMI Criteria *Q:
== END 2016-07-14 10:00 | disposition home or self-care (01) | DRG 812 ==
LOC: INTOOBSV 16:26 → VM.MS 16:26 → OBSVTOIN 07-13 17:08
PROVIDERS: ADMIT Family Medicine; ATTEND Family Medicine
PROC: 30233N1 Transfusion of Nonautologous Red Blood Cells into Peripheral Vein, Percutaneous Approach (ICD-10-PCS; principal; 2016-07-14)
DX: D64.9 Anemia, unspecified (principal); I50.32 Chronic diastolic (congestive) heart failure; I11.0 Hypertensive heart disease with heart failure; I48.2 Chronic atrial fibrillation; J44.9 Chronic obstructive pulmonary disease, unspecified; G47.33 Obstructive sleep apnea (adult) (pediatric); E78.5 Hyperlipidemia, unspecified; G25.81 Restless legs syndrome; G62.9 Polyneuropathy, unspecified; Z86.73 Personal history of transient ischemic attack (TIA), and cerebral infarction without residual deficits; N40.0 Benign prostatic hyperplasia without lower urinary tract symptoms; M19.90 Unspecified osteoarthritis, unspecified site; G47.00 Insomnia, unspecified; E78.00 Pure hypercholesterolemia, unspecified; K21.9 Gastro-esophageal reflux disease without esophagitis; F32.9 Major depressive disorder, single episode, unspecified; E66.9 Obesity, unspecified; Z68.30 Body mass index [BMI] 30.0-30.9, adult; Z87.891 Personal history of nicotine dependence; Z66 Do not resuscitate; Z79.01 Long term (current) use of anticoagulants; Z79.82 Long term (current) use of aspirin; Z79.899 Other long term (current) drug therapy
CPT/HCPCS: 36415 ×2; 36430; 85025; 86850; 86900; 86901; 86920; 86922; 94640 ×3; 94760; A9270 ×16; J1940 ×2; J7620 ×4; P9016 ×4; 85018

== ENCOUNTER 2021-03-21 01:00 | Emergency (ER) | payer MEDICARE, OTHER ==
[2021-03-21] MEDS ORDERED: Meclizine 25 MG Tab ONE (01:05)
[2021-03-21 01:19] VITALS: BP 148/67; PULSE 63
--- NOTE | 2021-03-21 01:27 | EDM.PDOC ---
ED HPI GENERAL MEDICAL PROBLEM - General Chief Complaint: General Stated Complaint: vertigo Time Seen by Provider: 03/21/21 01:00 Source of Information: Reports: Patient History Limitations: Reports: No Limitations - History of Present Illness INITIAL COMMENTS - FREE TEXT/NARRATIVE: Patient comes into the emergency department with concerns of dizziness. Patient states that when he goes to get up out of bed, stand, or moves his head quickly he ends up getting dizzy and lightheaded this is happened over the course the last week. It has not gotten any worse or progress. It has remained the same. Patient also states that he was out of oxygen for approximately 2 hours today. He states that after that he has been a bit more fatigued and tired this afternoon and evening after he was without his oxygen. Patient denies any chest pain, shortness of breath at rest, dizziness at rest, lightheadedness, blurred vision, changes in vision, abdominal pain, or peripheral edema. Patient states he is also been having some issues with his prostate and does plan on following up with his primary care provider regarding that. States that he does get dizzy after standing at times he has become nauseated. He denies having any vomiting episodes. Patient also denies any fever or recent COVID-19 exposure. Onset: Gradual Duration: Intermittent Location: Reports: Head Quality: Reports: Other Severity: Mild Improves with: Reports: Rest Worsens with: Reports: Movement Context: Reports: Activity Associated Symptoms: Reports: No Other Symptoms - Related Data Allergies Allergy/AdvReac Type Severity Reaction Status Date / Time No Known Allergies Allergy Verified 11/19/18 10:34 Home Meds: Home Meds Benazepril [Lotensin] 20 mg PO DAILY 08/12/13 [History] Furosemide [Lasix] 40 tab PO DAILY PRN 08/12/13 [History] Albuterol Sulfate 2.5 mg NEB DAILY PRN 05/06/15 [History] Arformoterol [Brovana] 15 mcg NEB BID 05/06/15 [History] Budesonide [Pulmicort] 0.5 mg NEB BID 05/06/15 [History] Omeprazole [Prilosec] 20 mg PO ACBREAKFAST 05/06/15 [History] Ipratropium [Atrovent] 0.5 mg NEB QID 02/03/16 [History] Tamsulosin [Flomax] 0.4 mg PO BEDTIME 02/03/16 [History] Warfarin [Coumadin] 7.5 mg PO MO 02/03/16 [History] traZODone HCl [Trazodone HCl] 50 mg PO BEDTIME PRN 02/03/16 [History] Cyanocobalamin (Vitamin B-12) [B-12] 1,000 mcg PO DAILY 06/01/16 [History] Ferrous Sulfate 325 mg PO BID 06/01/16 [History] Furosemide [Lasix] 40 mg PO DAILY@1200 06/01/16 [History] Melatonin 10 mg PO BEDTIME 06/01/16 [History] Polyethylene Glycol 3350 [MiraLAX] 17 gm PO DAILY PRN 06/01/16 [History] Albuterol [Ventolin HFA] 2 puff PO Q4H PRN 07/13/16 [History] Betamethasone/Clotrimazole [Lotrisone] 1 applic TOP BID 07/13/16 [History] Diltiazem [Cardizem CD] 120 mg PO DAILY 07/13/16 [History] Simvastatin 20 mg PO BEDTIME 07/13/16 [History] Warfarin [Coumadin] 5 mg PO SUTUWETHFRSA 07/13/16 [History] predniSONE [Prednisone] 5 mg PO DAILY 07/13/16 [History] Acetaminophen 1,000 mg PO BID PRN 11/19/18 [History] DULoxetine HCl [Duloxetine HCl] 30 mg PO DAILY 30 Days #30 capsule. 11/19/18 [Rx] Docusate Sodium [Colace] 100 mg PO BID 11/19/18 [History] Non-Formulary Medication [NF Drug] 1 applic TOP DAILY 11/19/18 [History] Sildenafil [Revatio] 50 mg PO DAILY PRN 11/19/18 [History] allopurinoL [Zyloprim] 100 mg PO DAILY 11/19/18 [History] Meclizine [Antivert] 25 mg PO TID PRN #20 tab 03/21/21 [Rx] Past Medical History HEENT History: Reports: None Cardiovascular History: Reports: Afib, Heart Failure, High Cholesterol, Hypertension Other Cardiovascular History: SVT Respiratory History: Reports: COPD, Sleep Apnea, SOB Gastrointestinal History: Reports: GERD Genitourinary History: Reports: BPH Musculoskeletal History: Reports: Arthritis, Back Pain, Chronic, Osteoarthritis, Other (See Below) Other Musculoskeletal History: Nocturnal leg cramps Neurological History: Reports: CVA, Neuropathy, Peripheral, Other (See Below) Psychiatric History: Reports: Depression, Other (See Below) Other Psychiatric History: Dythysic disorder Endocrine/Metabolic History: Reports: Obesity/BMI 30+ Other Endocrine/Metabolic History: Hyperuricemia Hematologic History: Reports: None Immunologic History: Reports: None Oncologic (Cancer) History: Reports: None Dermatologic History: Reports: None - Infectious Disease History Infectious Disease History: Reports: None - Past Surgical History HEENT Surgical History: Reports: Cataract Surgery, Tonsillectomy Musculoskeletal Surgical History: Reports: Knee Replacement, Shoulder Surgery, Other (See Below) Social & Family History - Family History Family Medical History: No Pertinent Family History Cardiac: Reports: CAD Oncologic: Reports: Colon - Caffeine Use Caffeine Use: Reports: None - Living Situation & Occupation Living situation: Reports: , with Significant Other Occupation: Retired ED ROS GENERAL - Review of Systems Review Of Systems: Comprehensive ROS is negative, except as noted in HPI. Constitutional: Reports: No Symptoms HEENT: Reports: No Symptoms Respiratory: Reports: No Symptoms Cardiovascular: Reports: No Symptoms Endocrine: Reports: No Symptoms GI/Abdominal: Reports: No Symptoms : Reports: No Symptoms Musculoskeletal: Reports: No Symptoms Skin: Reports: No Symptoms Neurological: Reports: Dizziness. Denies: Confusion, Headache, Numbness, Seizure, Syncope, Tingling, Difficulty Walking, Weakness Psychiatric: Reports: No Symptoms Hematologic/Lymphatic: Reports: No Symptoms Immunologic: Reports: No Symptoms ED EXAM, GENERAL - Physical Exam Exam: See Below Exam Limited By: No Limitations General Appearance: Alert, WD/WN, No Apparent Distress Ears: Other (thick ear wax noted throughout canal ) Nose: Normal Inspection, Normal Mucosa, No Blood Throat/Mouth: Normal Inspection, Normal Gums, No Airway Compromise Head: Atraumatic, Normocephalic Neck: Normal Inspection, Supple, Non-Tender, Full Range of Motion Respiratory/Chest: No Respiratory Distress, Lungs Clear, Normal Breath Sounds, No Accessory Muscle Use, Chest Non-Tender Cardiovascular: Normal Peripheral Pulses, Regular Rate, Rhythm, No Rub Back Exam: Normal Inspection, Full Range of Motion Extremities: Normal Inspection, Normal Range of Motion, Non-Tender, Normal Capillary Refill Neurological: Alert, Oriented Psychiatric: Normal Affect, Normal Mood Skin Exam: Warm, Dry, Intact, Normal Color, No Rash Course - Vital Signs Last Recorded V/S: Last Vital Signs Temp 36.3 C 03/21/21 01:14 Pulse 63 03/21/21 01:14 Resp 18 03/21/21 01:14 BP 148/67 H 03/21/21 01:14 Pulse Ox 77 L 03/21/21 01:14 - Orders/Labs/Meds Meds: Medications Discontinued Medications Generic Name Dose Route Start Last Admin Trade Name Eddie PRN Reason Stop Dose Admin Meclizine HCl Confirm 03/21/21 01:05 03/21/21 01:24 Meclizine 25 Mg Tab Administered 03/21/21 01:06 25 mg Dose Administration 25 mg .ROUTE .STK-MED ONE - Re-Assessments/Exams Free Text/Narrative Re-Assessment/Exam: 03/21/21 01:56 Patient is feeling better and not dizzy any longer and had no nausea with standing. He does still have generalized weakness but able to stand as normal. Did offer to complete labs but they are wanting to go home and rest. Did Stress that his increase in fatigue after he went without O2 it may take the body some time to recover. Patient is advised to call, return, or call 911 if symptoms p rogress or worsen. Departure - Departure Time of Disposition: 02:00 Disposition: Home, Self-Care 01 Clinical Impression: Vertigo Fatigue Qualifiers: Fatigue type: unspecified Qualified Code(s): R53.83 - Other fatigue - Discharge Information *PRESCRIPTION DRUG MONITORING PROGRAM REVIEWED*: Not Applicable *COPY OF PRESCRIPTION DRUG MONITORING REPORT IN PATIENT HARVEY: Not Applicable Instructions: Vertigo, [id number] Forms: ED Department Discharge Additional Instructions: 1. rest 2. increase your water intake 3. Continue all at home medications 4. Activity and diet as tolerated 5. Can take over the counter Tylenol for any pain or discomfort 6. Follow up with PCP if symptoms continue, return, or progress 7. Call with any questions or concerns 8. can take meclizine 25mg 3 times a day for dizziness 9. Follow up in the clinic next week for chronic medical concerns 10. Use ear drops in each ear 3 times a day and when you follow up in the clinic have them complete an ear wash to get the compacted ear wax out Sepsis Event Note (ED) - Focused Exam Vital Signs: Vital Signs Temp Pulse Resp BP Pulse Ox 03/21/21 01:14 36.3 C 63 18 148/67 H 77 L - Assessment/Plan Assessment:: 1. dizziness 2. vertigo Plan: 1. Meclizine given in the ER 2. Did offer covid testing 3. instructed patient he needs to turn on portable concentrator when power goes out 4. Instructed to use ear drops for 7 days to loosen up the compacted wax and follow up to have an ear wash completed 5. Education provided the patient regarding activity, diet, rest, [id number] medication modalities, and follow-up care was provided 6. Patient and family are agreeable to the above plan of care 7. All questions and concerns were addressed with the patient and family prior to discharge
[2021-03-21] MEDS ORDERED: Meclizine 25 MG Tab PO ONE (01:41)
== END 2021-03-21 02:03 | disposition home or self-care (01) ==
LOC: VM.ED 01:00
DX: R42 Dizziness and giddiness (principal); R53.83 Other fatigue; I48.91 Unspecified atrial fibrillation; I11.0 Hypertensive heart disease with heart failure; I50.9 Heart failure, unspecified; J44.9 Chronic obstructive pulmonary disease, unspecified; K21.9 Gastro-esophageal reflux disease without esophagitis; M19.90 Unspecified osteoarthritis, unspecified site; N40.0 Benign prostatic hyperplasia without lower urinary tract symptoms; E66.9 Obesity, unspecified; Z68.38 Body mass index [BMI] 38.0-38.9, adult; Z79.899 Other long term (current) drug therapy
CPT/HCPCS: 99283; 99284; A9270-GY

== ENCOUNTER 2021-05-11 16:45 | Observation (INO) | payer MEDICARE, OTHER ==
[2021-05-11 18:04] LABS: PTT,PARTIAL THROMBOPLSTIN TIME 34.9 SEC (25.6-32.8)
[2021-05-11 18:13] LABS: CHLORIDE,CL 102 mmol/L (98-107); SODIUM,NA 144 mmol/L (136-145)
[2021-05-11 18:14] LABS: ANION GAP 12.9 mmol/L (5-15)
[2021-05-11 18:34] LABS: CORONAVIRUS COVID-19 NAA NEGATIVE (NEGATIVE)
[2021-05-11] MEDS ORDERED: tiZANidine 4 MG Tab PO STA (19:12)
[2021-05-11] MEDS ORDERED: Lactated Ringers 1,000 ML IV ONE (19:28)
[2021-05-11] MEDS ORDERED: Simvastatin 20 MG Tab PO SCH (20:00)
[2021-05-11] MEDS ORDERED: Iopamidol 612 MG/ML 100 ML Bottle IVPUSH ONE (20:16)
[2021-05-11] MEDS ORDERED: Albuterol HFA 18 Gm Inhaler INH PRN (20:21)
[2021-05-11] MEDS ORDERED: Albuterol 0.083% 2.5 MG/3 ML Neb Soln NEB PRN (20:21)
[2021-05-11] MEDS ORDERED: tiZANidine 4 MG Tab PO PRN (20:26)
[2021-05-11] MEDS ORDERED: Polyethylene Glycol 3350 Powder 17 GM Packet PO STA (20:30)
[2021-05-11] MEDS: Acetaminophen 500 MG Tab PO PRN (20:59)
[2021-05-11] MEDS: Budesonide 0.5 MG/2 ML Neb Susp NEB SCH (21:00)
[2021-05-11] MEDS ORDERED: Warfarin 5 MG Tab PO SCH (21:00)
[2021-05-11] MEDS: Arformoterol 15 MCG/2 ML Neb Soln NEB SCH (21:00)
[2021-05-11] MEDS: Docusate Sodium 100 MG Cap PO SCH (21:01)
[2021-05-11] MEDS: Tamsulosin 0.4 MG Cap.ER PO SCH (22:25)
[2021-05-11] MEDS: traZODone 50 MG Tab PO SCH (22:25)
[2021-05-11] MEDS ORDERED: Lisinopril 20 MG Tab PO SCH (22:30)
[2021-05-12] MEDS ORDERED: diphenhydrAMINE 25 MG Cap PO ONE (00:25)
[2021-05-12] MEDS: Budesonide 0.5 MG/2 ML Neb Susp NEB SCH ×2 (06:56→20:03)
[2021-05-12] MEDS: Arformoterol 15 MCG/2 ML Neb Soln NEB SCH ×2 (06:56→20:03)
[2021-05-12] MEDS: Omeprazole 20 MG Cap.CR PO SCH (07:05)
[2021-05-12] MEDS: Cyanocobalamin (Vitamin B12) 1,000 MCG Tab PO SCH (07:37)
[2021-05-12] MEDS: Allopurinol 100 MG Tab PO SCH (07:37)
[2021-05-12] MEDS: Docusate Sodium 100 MG Cap PO SCH ×2 (07:37→20:02)
[2021-05-12] MEDS: Furosemide 40 MG Tab PO SCH ×2 (07:39→11:27)
[2021-05-12] MEDS: Lisinopril 20 MG Tab PO SCH (07:39)
[2021-05-12] MEDS: DULoxetine 30 MG Cap PO SCH (07:40)
[2021-05-12] MEDS ORDERED: Ferrous Sulfate 325 MG Tab PO SCH (08:00)
[2021-05-12] MEDS ORDERED: Polyethylene Glycol 3350 Powder 17 GM Packet PO SCH (08:00)
[2021-05-12] MEDS ORDERED: predniSONE 20 MG Tab PO SCH (08:00)
[2021-05-12] MEDS ORDERED: Polyethylene Glycol 3350 Powder 17 GM Packet PO PRN (11:45)
[2021-05-12] MEDS ORDERED: Bisacodyl 10 MG Supp RECTAL ONE (12:26)
[2021-05-12] MEDS ORDERED: Sodium Phosphate,Monobasic/Sodium Phosphate,Dibasic Enema 133 ML Bottle RECTAL ONE (15:40)
[2021-05-12] MEDS ORDERED: Bisacodyl 5 MG Tab PO ONE (17:22)
[2021-05-12] MEDS ORDERED: Simvastatin 10 MG Tab PO SCH (20:00)
[2021-05-12] MEDS: Tamsulosin 0.4 MG Cap.ER PO SCH (20:02)
[2021-05-12] MEDS: traZODone 50 MG Tab PO SCH (20:02)
[2021-05-12] MEDS: traMADol 50 MG Tab PO PRN (20:22)
[2021-05-12] MEDS ORDERED: Warfarin 5 MG Tab PO SCH (21:00)
[2021-05-13] MEDS: Acetaminophen 500 MG Tab PO PRN (02:29)
[2021-05-13] MEDS: traMADol 50 MG Tab PO PRN (06:37)
[2021-05-13] MEDS: Omeprazole 20 MG Cap.CR PO SCH (06:37)
[2021-05-13 06:56] LABS: ANION GAP 9.5 mmol/L (5-15)
[2021-05-13] MEDS: Arformoterol 15 MCG/2 ML Neb Soln NEB SCH (07:11)
[2021-05-13] MEDS: Budesonide 0.5 MG/2 ML Neb Susp NEB SCH (07:11)
[2021-05-13] MEDS: Lisinopril 20 MG Tab PO SCH (07:43)
[2021-05-13] MEDS: Docusate Sodium 100 MG Cap PO SCH (07:44)
[2021-05-13] MEDS: Furosemide 40 MG Tab PO SCH ×2 (07:44→11:30)
[2021-05-13] MEDS: DULoxetine 30 MG Cap PO SCH (07:44)
[2021-05-13] MEDS: Cyanocobalamin (Vitamin B12) 1,000 MCG Tab PO SCH (07:45)
[2021-05-13] MEDS: Allopurinol 100 MG Tab PO SCH (07:48)
[2021-05-13] MEDS ORDERED: predniSONE 10 MG Tab PO SCH (08:00)
[2021-05-13 12:22] VITALS: BP 129/71; PULSE 90
[2021-05-13] MEDS ORDERED: Warfarin 5 MG Tab PO SCH (21:00)
[2021-05-17] MEDS ORDERED: Warfarin 5 MG Tab PO SCH (21:00)
== END 2021-05-13 12:48 | disposition home health service (06) ==
LOC: VM.ED 16:45 → VM.MS 19:11
PROVIDERS: ADMIT Nurse Practitioner Family; ATTEND Internal Medicine
DX: M62.830 Muscle spasm of back (principal); J44.9 Chronic obstructive pulmonary disease, unspecified; I11.0 Hypertensive heart disease with heart failure; E78.00 Pure hypercholesterolemia, unspecified; I25.10 Atherosclerotic heart disease of native coronary artery without angina pectoris; J96.11 Chronic respiratory failure with hypoxia; E11.42 Type 2 diabetes mellitus with diabetic polyneuropathy; G25.81 Restless legs syndrome; E66.9 Obesity, unspecified; K59.00 Constipation, unspecified; I48.0 Paroxysmal atrial fibrillation; I50.32 Chronic diastolic (congestive) heart failure; Z20.822 Contact with and (suspected) exposure to COVID-19; Z86.73 Personal history of transient ischemic attack (TIA), and cerebral infarction without residual deficits; Z99.81 Dependence on supplemental oxygen; Z79.899 Other long term (current) drug therapy; Z79.01 Long term (current) use of anticoagulants; Z98.890 Other specified postprocedural states; Z87.891 Personal history of nicotine dependence
CPT/HCPCS: 0240U; 36415; 72100; 74022; 74177; 80048; 80053; 81001; 83605; 83880; 84484; 85025; 85610; 85730; 86140; 93005; 94640; 94760; 97161-GP; 97165-GO; 99285-25; A9270-GY; G0378; J7120; J7512; Q9967

== ENCOUNTER 2022-09-08 07:11 | Inpatient (IN) | payer MEDICARE, OTHER ==
[2022-09-08] MEDS ORDERED: Albuterol/Ipratropium 3.0-0.5 MG/3 ML Neb Soln ONE (07:24)
[2022-09-08] MEDS ORDERED: Albuterol/Ipratropium 3.0-0.5 MG/3 ML Neb Soln NEB ONE (07:25)
[2022-09-08] MEDS ORDERED: methylPREDNISolone Sodium Succinate 125 MG/2 ML SDV IVPUSH ONE (07:26)
[2022-09-08] MEDS ORDERED: cefTRIAXone 1 GM Vial IVPUSH ONE (07:26)
[2022-09-08] MEDS ORDERED: Sodium Chloride 0.9% 1,000 ML IV ONE (07:27)
[2022-09-08] MEDS ORDERED: Acetaminophen 325 MG Tab PO ONE (07:28)
[2022-09-08 07:40] LABS: BASOPHILS PERCENT AUTO 0.2 % (0.2-1.2); EOSINOPHILS PERCENT AUTO 0.1 % (0.0-4.0); HEMATOCRIT 43.6 % (40.0-52.0); HEMOGLOBIN 14.7 g/dL (14.0-18.0); IMMATURE GRAN ABSOLUTE AUTO 0.04 x10^3/uL (0.00-0.07); LYMPHOCYTES ABSOLUTE AUTO 0.5 x10^3/uL (1.0-4.8); LYMPHOCYTES PERCENT AUTO 3.9 % (25.0-50.0); MEAN CORPUSCULAR HEMOGLOBIN 31.4 pg (26.0-32.0); MEAN CORPUSCULAR HGB CONC 33.7 g/dL (32.0-36.0); MEAN CORPUSCULAR VOLUME 93.2 fL (78.0-93.0); MONOCYTES ABSOLUTE AUTO 0.9 x10^3/uL (0.0-0.8); MONOCYTES PERCENT AUTO 6.2 % (2.0-11.0); NEUTROPHILS ABSOLUTE AUTO 12.3 x10^3/uL (1.8-7.7); PLATELET COUNT,PLT 202 x10^3/uL (130-400); RED BLOOD CELL COUNT 4.68 x10^6/uL (4.5-6.0); WHITE BLOOD CELL COUNT,WBC 13.8 x10^3/uL (4.0-10.0)
[2022-09-08 07:44] LABS: NEUTROPHILS PERCENT AUTO 89.3 % (50.0-80.0)
[2022-09-08] MEDS ORDERED: Furosemide 40 MG/4 ML VIAL IV ONE (07:45)
[2022-09-08 07:55] LABS: INR 2.3 (2.0-3.5)
[2022-09-08 07:59] LABS: BASE EXCESS ARTERIAL,POC 3 mmol/L ((-2)-3); HCO3 ARTERIAL,POC 27.5 mmol/L (21-28); O2 SATURATION ARTERIAL,POC 84.7 % (94-98); PCO2 ARTERIAL,POC 41 mmHg (35-48); PH ARTERIAL,POC 7.44 pH (7.35-7.45); PO2 ARTERIAL,POC 48 mmHg (83-108); TCO2 ARTERIAL,POC 26.6 mmol/L (22-29)
[2022-09-08 08:02] LABS: LACTIC ACID 1.2 mmol/L (0.4-2.0)
[2022-09-08 08:07] LABS: ALANINE AMINOTRANSFERASE,ALT 21 U/L (16-63); ALBUMIN 3.6 g/dL (3.4-5.0); ALKALINE PHOSPHATASE 92 U/L (46-116); ASPARTATE AMNIOTRANSFERASE,AST 19 U/L (15-37); BILIRUBIN TOTAL 0.9 mg/dL (0.2-1.0); BLOOD UREA NITROGEN,BUN 26 mg/dL (7-18); CALCIUM 8.9 mg/dL (8.5-10.1); CARBON DIOXIDE,CO2 30 mmol/L (21-32); CHLORIDE,CL 101 mmol/L (98-107); CREATININE 1.3 mg/dL (0.70-1.30); GLUCOSE RANDOM 142 mg/dL (70-99); POTASSIUM,K 3.9 mmol/L (3.5-5.1); PRO B-TYPE NATRIUR PEPT,BNPPRO 785 pg/mL (<=450); PROTEIN TOTAL,TP 7.2 g/dL (6.4-8.2); SODIUM,NA 139 mmol/L (136-145)
[2022-09-08 08:10] LABS: ANION GAP 11.9 mmol/L (5-15); ESTIMATED GFR 55 mL/min (>=60)
[2022-09-08 08:17] LABS: APPEARANCE,URINE CLEAR (CLEAR); BILIRUBIN,URINE NEGATIVE (NEGATIVE); COLOR,URINE YELLOW (YELLOW); GLUCOSE,URINE NEGATIVE (NEGATIVE); KETONES,URINE NEGATIVE (NEGATIVE); LEUKOCYTE ESTERASE,URINE SMALL (NEGATIVE); NITRITE,URINE NEGATIVE (NEGATIVE); OCCULT BLOOD,URINE MODERATE (NEGATIVE); PROTEIN,URINE 100 mg/dL (NEGATIVE); UROBILINOGEN,URINE 0.2 EU/dL (0.2)
[2022-09-08 08:23] LABS: BACTERIA,URINE MANY /HPF (NOT SEEN); HYALINE CASTS,URINE RARE; MUCUS,URINE NOT SEEN /LPF (NOT SEEN); RBC,URINE 0-5 /HPF (NOT SEEN); SQUAMOUS EPITHELIAL CELLS,UR RARE /HPF (NOT SEEN)
[2022-09-08] MEDS ORDERED: Flumazenil 0.1 MG/ML 5 ML MDV IVPUSH PRN (09:44)
[2022-09-08] MEDS ORDERED: LORazepam 2 MG/ML SDV IVPUSH PRN (09:44)
[2022-09-08] MEDS ORDERED: ALPRAZolam 0.25 MG Tab PO PRN (09:45)
[2022-09-08] MEDS ORDERED: Albuterol 0.083% 2.5 MG/3 ML Neb Soln NEB PRN (13:45)
[2022-09-08] MEDS: methylPREDNISolone Sodium Succinate 40 MG/1 ML SDV IVPUSH SCH ×2 (14:37→23:30)
[2022-09-08] MEDS: guaiFENesin 600 MG Tab.ER PO SCH (21:39)
[2022-09-08] MEDS: Docusate Sodium 100 MG Cap PO SCH (21:39)
[2022-09-08] MEDS: hydrOXYzine HCl 25 MG Tab PO SCH (21:39)
[2022-09-08] MEDS: Budesonide 0.5 MG/2 ML Neb Susp NEB SCH (21:40)
[2022-09-08] MEDS: Arformoterol 15 MCG/2 ML Neb Soln NEB SCH (21:40)
[2022-09-08] MEDS: traZODone 50 MG Tab PO SCH (21:40)
[2022-09-08] MEDS: Warfarin 5 MG Tab PO SCH (23:29)
[2022-09-08] MEDS: Sodium Chloride 0.9% 10 ML Syringe FLUSH PRN (23:31)
[2022-09-09] MEDS: Omeprazole 20 MG Cap.CR PO SCH (06:23)
[2022-09-09] MEDS: Arformoterol 15 MCG/2 ML Neb Soln NEB SCH ×2 (06:23→21:01)
[2022-09-09] MEDS: Budesonide 0.5 MG/2 ML Neb Susp NEB SCH ×2 (06:23→21:01)
[2022-09-09 07:12] LABS: BASOPHILS PERCENT AUTO 0.1 % (0.2-1.2); HEMATOCRIT 39.5 % (40.0-52.0); IMMATURE GRAN ABSOLUTE AUTO 0.08 x10^3/uL (0.00-0.07); LYMPHOCYTES ABSOLUTE AUTO 0.5 x10^3/uL (1.0-4.8); LYMPHOCYTES PERCENT AUTO 3.2 % (25.0-50.0); MEAN CORPUSCULAR HEMOGLOBIN 31.5 pg (26.0-32.0); MEAN CORPUSCULAR HGB CONC 32.9 g/dL (32.0-36.0); MEAN CORPUSCULAR VOLUME 95.6 fL (78.0-93.0); MONOCYTES ABSOLUTE AUTO 0.7 x10^3/uL (0.0-0.8); MONOCYTES PERCENT AUTO 4.5 % (2.0-11.0); NEUTROPHILS ABSOLUTE AUTO 14.9 x10^3/uL (1.8-7.7); PLATELET COUNT,PLT 218 x10^3/uL (130-400); RED BLOOD CELL COUNT 4.13 x10^6/uL (4.5-6.0); WHITE BLOOD CELL COUNT,WBC 16.3 x10^3/uL (4.0-10.0)
[2022-09-09 07:23] LABS: NEUTROPHILS PERCENT AUTO 91.7 % (50.0-80.0)
[2022-09-09 07:28] LABS: INR 2.4 (2.0-3.5); PROTHROMBIN TIME 24.6 SEC (9.5-12.2)
[2022-09-09 07:29] LABS: CALCIUM 8.9 mg/dL (8.5-10.1); CREATININE 1.3 mg/dL (0.70-1.30); EST CRCL DRUG DOSING (CG) 50.36 mL/min; POTASSIUM,K 3.8 mmol/L (3.5-5.1)
[2022-09-09 07:30] LABS: ANION GAP 8.8 mmol/L (5-15)
[2022-09-09] MEDS: Tamsulosin 0.4 MG Cap.ER PO SCH (08:13)
[2022-09-09] MEDS: Allopurinol 100 MG Tab PO SCH (08:13)
[2022-09-09] MEDS: cefTRIAXone 1 GM Vial IVPUSH SCH (08:14)
[2022-09-09] MEDS: Tiotropium Bromide 4 GM Inhalation Spray (2.5mcg/1 dose; 10 doses) INH SCH (08:14)
[2022-09-09] MEDS ORDERED: hydrOXYzine HCl 25 MG Tab PO PRN (08:29)
[2022-09-09] MEDS ORDERED: DULoxetine 30 MG Cap PO SCH (09:00)
[2022-09-09] MEDS: Doxycycline Monohydrate 100 MG Cap PO SCH ×2 (09:30→21:02)
[2022-09-09] MEDS: Phytonadione 100 MCG Tab PO SCH (09:30)
[2022-09-09] MEDS: guaiFENesin 600 MG Tab.ER PO SCH ×2 (09:30→21:03)
[2022-09-09] MEDS: Docusate Sodium 100 MG Cap PO SCH ×2 (09:30→21:02)
[2022-09-09] MEDS: Polyethylene Glycol 3350 Powder 17 GM Packet PO SCH (09:31)
[2022-09-09] MEDS: Albuterol 0.083% 2.5 MG/3 ML Neb Soln NEB SCH ×4 (09:35→21:01)
[2022-09-09] MEDS: DULoxetine 20 MG Cap PO SCH (09:36)
[2022-09-09] MEDS: methylPREDNISolone Sodium Succinate 40 MG/1 ML SDV IVPUSH SCH ×2 (11:30→22:50)
[2022-09-09] MEDS: Furosemide 40 MG Tab PO SCH (14:12)
[2022-09-09] MEDS: Metoprolol Tartrate 25 MG Tab PO SCH ×2 (16:33→21:05)
[2022-09-09] MEDS ORDERED: Metoprolol Succinate 25 MG Tab.ER PO SCH (21:00)
[2022-09-09] MEDS: Warfarin 2.5 MG Tab PO SCH (21:02)
[2022-09-09] MEDS: traZODone 50 MG Tab PO SCH (21:02)
[2022-09-09] MEDS: hydrOXYzine HCl 25 MG Tab PO SCH (21:03)
[2022-09-10] MEDS: Omeprazole 20 MG Cap.CR PO SCH (06:34)
[2022-09-10] MEDS: Furosemide 80 MG Tab PO SCH (06:34)
[2022-09-10] MEDS: Albuterol 0.083% 2.5 MG/3 ML Neb Soln NEB SCH ×4 (06:45→21:05)
[2022-09-10] MEDS: Budesonide 0.5 MG/2 ML Neb Susp NEB SCH ×2 (06:45→21:06)
[2022-09-10] MEDS: Arformoterol 15 MCG/2 ML Neb Soln NEB SCH ×2 (06:46→21:05)
[2022-09-10 07:56] LABS: BASOPHILS PERCENT AUTO 0.1 % (0.2-1.2); HEMATOCRIT 41.8 % (40.0-52.0); HEMOGLOBIN 13.5 g/dL (14.0-18.0); IMMATURE GRAN ABSOLUTE AUTO 0.08 x10^3/uL (0.00-0.07); LYMPHOCYTES PERCENT AUTO 3.2 % (25.0-50.0); MEAN CORPUSCULAR HEMOGLOBIN 31.3 pg (26.0-32.0); MEAN CORPUSCULAR HGB CONC 32.3 g/dL (32.0-36.0); MEAN CORPUSCULAR VOLUME 96.8 fL (78.0-93.0); MONOCYTES ABSOLUTE AUTO 0.9 x10^3/uL (0.0-0.8); NEUTROPHILS ABSOLUTE AUTO 12.9 x10^3/uL (1.8-7.7); NEUTROPHILS PERCENT AUTO 90.1 % (50.0-80.0); PLATELET COUNT,PLT 255 x10^3/uL (130-400); RED BLOOD CELL COUNT 4.32 x10^6/uL (4.5-6.0); WHITE BLOOD CELL COUNT,WBC 14.3 x10^3/uL (4.0-10.0)
[2022-09-10 08:12] LABS: CALCIUM 9.2 mg/dL (8.5-10.1); CREATININE 1.5 mg/dL (0.70-1.30); EST CRCL DRUG DOSING (CG) 43.65 mL/min; POTASSIUM,K 3.8 mmol/L (3.5-5.1)
[2022-09-10 08:13] LABS: INR 2.5 (2.0-3.5); PROTHROMBIN TIME 26.2 SEC (9.5-12.2)
[2022-09-10 08:14] LABS: LYMPHOCYTES ABSOLUTE AUTO 0.5 x10^3/uL (1.0-4.8)
[2022-09-10 08:15] LABS: ANION GAP 10.8 mmol/L (5-15)
[2022-09-10] MEDS: Doxycycline Monohydrate 100 MG Cap PO SCH ×2 (08:42→21:07)
[2022-09-10] MEDS: Allopurinol 100 MG Tab PO SCH (08:42)
[2022-09-10] MEDS: Metoprolol Tartrate 25 MG Tab PO SCH ×2 (08:43→21:06)
[2022-09-10] MEDS: guaiFENesin 600 MG Tab.ER PO SCH ×2 (08:43→21:06)
[2022-09-10] MEDS: Phytonadione 100 MCG Tab PO SCH (08:43)
[2022-09-10] MEDS: DULoxetine 20 MG Cap PO SCH (08:43)
[2022-09-10] MEDS: Tamsulosin 0.4 MG Cap.ER PO SCH (08:43)
[2022-09-10] MEDS: cefTRIAXone 1 GM Vial IVPUSH SCH (08:44)
[2022-09-10] MEDS: Docusate Sodium 100 MG Cap PO SCH ×2 (08:53→21:06)
[2022-09-10] MEDS: Polyethylene Glycol 3350 Powder 17 GM Packet PO SCH (08:53)
[2022-09-10] MEDS: Tiotropium Bromide 4 GM Inhalation Spray (2.5mcg/1 dose; 10 doses) INH SCH (08:54)
[2022-09-10] MEDS: Furosemide 40 MG Tab PO SCH (11:28)
[2022-09-10] MEDS: methylPREDNISolone Sodium Succinate 40 MG/1 ML SDV IVPUSH SCH ×2 (11:32→23:17)
[2022-09-10] MEDS: Acetaminophen 325 MG Tab PO PRN ×2 (18:56→23:17)
[2022-09-10] MEDS: hydrOXYzine HCl 25 MG Tab PO SCH (21:07)
[2022-09-10] MEDS: traZODone 50 MG Tab PO SCH (21:07)
[2022-09-10] MEDS: Warfarin 5 MG Tab PO SCH (21:09)
[2022-09-11] MEDS: Furosemide 80 MG Tab PO SCH (06:54)
[2022-09-11] MEDS: Omeprazole 20 MG Cap.CR PO SCH (06:54)
[2022-09-11] MEDS: Arformoterol 15 MCG/2 ML Neb Soln NEB SCH ×2 (06:58→21:25)
[2022-09-11] MEDS: Albuterol 0.083% 2.5 MG/3 ML Neb Soln NEB SCH ×4 (06:58→21:26)
[2022-09-11] MEDS: Budesonide 0.5 MG/2 ML Neb Susp NEB SCH ×2 (06:59→21:26)
[2022-09-11 08:13] LABS: HEMATOCRIT 40.9 % (40.0-52.0); HEMOGLOBIN 13.4 g/dL (14.0-18.0); IMMATURE GRAN ABSOLUTE AUTO 0.05 x10^3/uL (0.00-0.07); LYMPHOCYTES PERCENT AUTO 4.3 % (25.0-50.0); MEAN CORPUSCULAR HEMOGLOBIN 31.5 pg (26.0-32.0); MEAN CORPUSCULAR HGB CONC 32.8 g/dL (32.0-36.0); MEAN CORPUSCULAR VOLUME 96.2 fL (78.0-93.0); MONOCYTES ABSOLUTE AUTO 0.8 x10^3/uL (0.0-0.8); MONOCYTES PERCENT AUTO 7.5 % (2.0-11.0); NEUTROPHILS ABSOLUTE AUTO 9.2 x10^3/uL (1.8-7.7); NEUTROPHILS PERCENT AUTO 87.7 % (50.0-80.0); PLATELET COUNT,PLT 256 x10^3/uL (130-400); RED BLOOD CELL COUNT 4.25 x10^6/uL (4.5-6.0); WHITE BLOOD CELL COUNT,WBC 10.4 x10^3/uL (4.0-10.0)
[2022-09-11] MEDS: Sodium Chloride 0.9% 10 ML Syringe FLUSH PRN (08:32)
[2022-09-11 08:38] LABS: A/G RATIO 0.94; ALBUMIN 3.2 g/dL (3.4-5.0); BILIRUBIN TOTAL 0.3 mg/dL (0.2-1.0); CREATININE 1.4 mg/dL (0.70-1.30); EST CRCL DRUG DOSING (CG) 46.77 mL/min; POTASSIUM,K 4.3 mmol/L (3.5-5.1); PROTEIN TOTAL,TP 6.6 g/dL (6.4-8.2)
[2022-09-11] MEDS: Phytonadione 100 MCG Tab PO SCH (08:40)
[2022-09-11] MEDS: Tamsulosin 0.4 MG Cap.ER PO SCH (08:40)
[2022-09-11] MEDS: Doxycycline Monohydrate 100 MG Cap PO SCH ×2 (08:40→21:26)
[2022-09-11 08:41] LABS: LYMPHOCYTES ABSOLUTE AUTO 0.5 x10^3/uL (1.0-4.8)
[2022-09-11] MEDS: Allopurinol 100 MG Tab PO SCH (08:41)
[2022-09-11 08:42] LABS: ANION GAP 8.3 mmol/L (5-15)
[2022-09-11] MEDS: guaiFENesin 600 MG Tab.ER PO SCH ×2 (08:42→21:26)
[2022-09-11] MEDS: DULoxetine 20 MG Cap PO SCH (08:47)
[2022-09-11] MEDS: Docusate Sodium 100 MG Cap PO SCH ×2 (08:47→21:26)
[2022-09-11] MEDS: Polyethylene Glycol 3350 Powder 17 GM Packet PO SCH (08:47)
[2022-09-11] MEDS: cefTRIAXone 1 GM Vial IVPUSH SCH (08:49)
[2022-09-11] MEDS: Tiotropium Bromide 4 GM Inhalation Spray (2.5mcg/1 dose; 10 doses) INH SCH (08:56)
[2022-09-11] MEDS: Metoprolol Succinate 25 MG Tab.ER PO SCH (10:42)
[2022-09-11] MEDS: Furosemide 40 MG Tab PO SCH (11:42)
[2022-09-11] MEDS: methylPREDNISolone Sodium Succinate 40 MG/1 ML SDV IVPUSH SCH ×2 (11:42→22:29)
[2022-09-11] MEDS: traZODone 50 MG Tab PO SCH (21:26)
[2022-09-11] MEDS: hydrOXYzine HCl 25 MG Tab PO SCH (21:27)
[2022-09-11] MEDS: Warfarin 5 MG Tab PO SCH (21:29)
[2022-09-12] MEDS: Arformoterol 15 MCG/2 ML Neb Soln NEB SCH ×2 (06:38→20:03)
[2022-09-12] MEDS: Budesonide 0.5 MG/2 ML Neb Susp NEB SCH ×2 (06:38→20:03)
[2022-09-12] MEDS: Albuterol 0.083% 2.5 MG/3 ML Neb Soln NEB SCH ×4 (06:38→20:01)
[2022-09-12] MEDS: Omeprazole 20 MG Cap.CR PO SCH (06:39)
[2022-09-12] MEDS: Metoprolol Succinate 25 MG Tab.ER PO SCH ×2 (06:39→08:01)
[2022-09-12] MEDS: Furosemide 80 MG Tab PO SCH (06:40)
[2022-09-12 07:03] LABS: HEMATOCRIT 41.1 % (40.0-52.0); HEMOGLOBIN 13.6 g/dL (14.0-18.0); IMMATURE GRAN ABSOLUTE AUTO 0.16 x10^3/uL (0.00-0.07); LYMPHOCYTES ABSOLUTE AUTO 0.4 x10^3/uL (1.0-4.8); MEAN CORPUSCULAR HEMOGLOBIN 31.3 pg (26.0-32.0); MEAN CORPUSCULAR HGB CONC 33.1 g/dL (32.0-36.0); MEAN CORPUSCULAR VOLUME 94.5 fL (78.0-93.0); MONOCYTES ABSOLUTE AUTO 0.9 x10^3/uL (0.0-0.8); MONOCYTES PERCENT AUTO 9.2 % (2.0-11.0); NEUTROPHILS ABSOLUTE AUTO 8.7 x10^3/uL (1.8-7.7); PLATELET COUNT,PLT 238 x10^3/uL (130-400); RED BLOOD CELL COUNT 4.35 x10^6/uL (4.5-6.0); WHITE BLOOD CELL COUNT,WBC 10.2 x10^3/uL (4.0-10.0)
[2022-09-12 07:18] LABS: LYMPHOCYTES PERCENT AUTO 4.2 % (25.0-50.0)
[2022-09-12 07:26] LABS: A/G RATIO 0.97; BILIRUBIN TOTAL 0.3 mg/dL (0.2-1.0); CALCIUM 9.2 mg/dL (8.5-10.1); CREATININE 1.2 mg/dL (0.70-1.30); EST CRCL DRUG DOSING (CG) 54.56 mL/min; POTASSIUM,K 4.3 mmol/L (3.5-5.1); PROTEIN TOTAL,TP 6.1 g/dL (6.4-8.2)
[2022-09-12 07:28] LABS: ANION GAP 9.3 mmol/L (5-15)
[2022-09-12] MEDS: Tamsulosin 0.4 MG Cap.ER PO SCH (09:35)
[2022-09-12] MEDS: Docusate Sodium 100 MG Cap PO SCH ×2 (09:35→20:04)
[2022-09-12] MEDS: Doxycycline Monohydrate 100 MG Cap PO SCH ×2 (09:35→20:04)
[2022-09-12] MEDS: DULoxetine 20 MG Cap PO SCH (09:35)
[2022-09-12] MEDS: Phytonadione 100 MCG Tab PO SCH (09:35)
[2022-09-12] MEDS: guaiFENesin 600 MG Tab.ER PO SCH ×2 (09:35→20:04)
[2022-09-12] MEDS: cefTRIAXone 1 GM Vial IVPUSH SCH (09:36)
[2022-09-12] MEDS: Allopurinol 100 MG Tab PO SCH (09:36)
[2022-09-12] MEDS: Sennosides 8.6 MG Tab PO SCH (09:36)
[2022-09-12] MEDS: Tiotropium Bromide 4 GM Inhalation Spray (2.5mcg/1 dose; 10 doses) INH SCH (09:38)
[2022-09-12] MEDS: Polyethylene Glycol 3350 Powder 17 GM Packet PO SCH (09:55)
[2022-09-12] MEDS: Furosemide 40 MG Tab PO SCH (11:23)
[2022-09-12] MEDS: methylPREDNISolone Sodium Succinate 40 MG/1 ML SDV IVPUSH SCH (11:31)
[2022-09-12] MEDS: Acetaminophen 325 MG Tab PO PRN (14:43)
[2022-09-12] MEDS: Sodium Chloride 0.9% 10 ML Syringe FLUSH PRN (19:59)
[2022-09-12] MEDS: traZODone 50 MG Tab PO SCH (20:03)
[2022-09-12] MEDS: hydrOXYzine HCl 25 MG Tab PO SCH (20:04)
[2022-09-12] MEDS: Warfarin 2.5 MG Tab PO SCH (20:06)
[2022-09-13] MEDS: Furosemide 80 MG Tab PO SCH (06:25)
[2022-09-13] MEDS: Omeprazole 20 MG Cap.CR PO SCH (06:25)
[2022-09-13] MEDS: Budesonide 0.5 MG/2 ML Neb Susp NEB SCH ×2 (06:55→21:32)
[2022-09-13] MEDS: Arformoterol 15 MCG/2 ML Neb Soln NEB SCH ×2 (06:55→21:32)
[2022-09-13] MEDS: Albuterol 0.083% 2.5 MG/3 ML Neb Soln NEB SCH ×4 (06:55→21:32)
[2022-09-13 07:12] LABS: PROTHROMBIN TIME 31.1 SEC (9.5-12.2)
[2022-09-13] MEDS: Phytonadione 100 MCG Tab PO SCH (08:47)
[2022-09-13] MEDS: guaiFENesin 600 MG Tab.ER PO SCH ×2 (08:47→21:33)
[2022-09-13] MEDS: Docusate Sodium 100 MG Cap PO SCH ×2 (08:47→21:33)
[2022-09-13] MEDS: Allopurinol 100 MG Tab PO SCH (08:48)
[2022-09-13] MEDS: Tiotropium Bromide 4 GM Inhalation Spray (2.5mcg/1 dose; 10 doses) INH SCH (08:48)
[2022-09-13] MEDS: predniSONE 20 MG Tab PO SCH (08:48)
[2022-09-13] MEDS: Doxycycline Monohydrate 100 MG Cap PO SCH ×2 (08:48→21:32)
[2022-09-13] MEDS: Tamsulosin 0.4 MG Cap.ER PO SCH (08:48)
[2022-09-13] MEDS: Sennosides 8.6 MG Tab PO SCH (08:48)
[2022-09-13] MEDS: Amoxicillin/Clavulanate K 875-125 MG Tab PO SCH ×2 (08:48→21:32)
[2022-09-13] MEDS: Polyethylene Glycol 3350 Powder 17 GM Packet PO SCH (08:49)
[2022-09-13] MEDS: Metoprolol Tartrate 25 MG Tab PO SCH ×2 (08:59→21:37)
[2022-09-13] MEDS: DULoxetine 20 MG Cap PO SCH (09:39)
[2022-09-13] MEDS: Furosemide 40 MG Tab PO SCH (12:32)
[2022-09-13] MEDS: hydrOXYzine HCl 25 MG Tab PO SCH (21:32)
[2022-09-13] MEDS: traZODone 50 MG Tab PO SCH (21:33)
[2022-09-14] MEDS: Furosemide 80 MG Tab PO SCH (06:39)
[2022-09-14] MEDS: Omeprazole 20 MG Cap.CR PO SCH (06:40)
[2022-09-14 06:44] VITALS: PULSE 62
[2022-09-14] MEDS: Budesonide 0.5 MG/2 ML Neb Susp NEB SCH (06:45)
[2022-09-14] MEDS: Albuterol 0.083% 2.5 MG/3 ML Neb Soln NEB SCH ×2 (06:45→10:41)
[2022-09-14] MEDS: Arformoterol 15 MCG/2 ML Neb Soln NEB SCH (06:45)
[2022-09-14 07:17] LABS: BASOPHILS PERCENT AUTO 0.1 % (0.2-1.2); EOSINOPHILS ABSOLUTE AUTO 0.3 x10^3/uL (0.0-0.5); EOSINOPHILS PERCENT AUTO 2.1 % (0.0-4.0); HEMATOCRIT 46.5 % (40.0-52.0); HEMOGLOBIN 15.1 g/dL (14.0-18.0); IMMATURE GRAN ABSOLUTE AUTO 0.49 x10^3/uL (0.00-0.07); LYMPHOCYTES ABSOLUTE AUTO 2.2 x10^3/uL (1.0-4.8); LYMPHOCYTES PERCENT AUTO 15.4 % (25.0-50.0); MEAN CORPUSCULAR HEMOGLOBIN 31.1 pg (26.0-32.0); MEAN CORPUSCULAR HGB CONC 32.5 g/dL (32.0-36.0); MEAN CORPUSCULAR VOLUME 95.7 fL (78.0-93.0); MONOCYTES ABSOLUTE AUTO 1.4 x10^3/uL (0.0-0.8); MONOCYTES PERCENT AUTO 9.5 % (2.0-11.0); NEUTROPHILS ABSOLUTE AUTO 10.1 x10^3/uL (1.8-7.7); NEUTROPHILS PERCENT AUTO 69.5 % (50.0-80.0); PLATELET COUNT,PLT 334 x10^3/uL (130-400); RED BLOOD CELL COUNT 4.86 x10^6/uL (4.5-6.0); WHITE BLOOD CELL COUNT,WBC 14.5 x10^3/uL (4.0-10.0)
[2022-09-14 07:33] LABS: INR 2.2 (2.0-3.5); PROTHROMBIN TIME 22.9 SEC (9.5-12.2)
[2022-09-14 07:36] LABS: ANION GAP 8.2 mmol/L (5-15); CALCIUM 9.5 mg/dL (8.5-10.1); CREATININE 1.4 mg/dL (0.70-1.30); EST CRCL DRUG DOSING (CG) 46.77 mL/min; POTASSIUM,K 4.2 mmol/L (3.5-5.1)
[2022-09-14] MEDS: Doxycycline Monohydrate 100 MG Cap PO SCH (08:37)
[2022-09-14] MEDS: Allopurinol 100 MG Tab PO SCH (08:38)
[2022-09-14] MEDS: Sennosides 8.6 MG Tab PO SCH (08:38)
[2022-09-14] MEDS: Amoxicillin/Clavulanate K 875-125 MG Tab PO SCH (08:38)
[2022-09-14] MEDS: guaiFENesin 600 MG Tab.ER PO SCH (08:38)
[2022-09-14] MEDS: Metoprolol Tartrate 25 MG Tab PO SCH (08:38)
[2022-09-14] MEDS: Docusate Sodium 100 MG Cap PO SCH (08:38)
[2022-09-14] MEDS: Tamsulosin 0.4 MG Cap.ER PO SCH (08:39)
[2022-09-14] MEDS: Tiotropium Bromide 4 GM Inhalation Spray (2.5mcg/1 dose; 10 doses) INH SCH (08:39)
[2022-09-14] MEDS: DULoxetine 20 MG Cap PO SCH (08:39)
[2022-09-14] MEDS: Phytonadione 100 MCG Tab PO SCH (08:39)
[2022-09-14] MEDS: predniSONE 20 MG Tab PO SCH (08:39)
[2022-09-14] MEDS: Polyethylene Glycol 3350 Powder 17 GM Packet PO SCH (08:41)
[2022-09-14 10:52] VITALS: BP 120/52
[2022-09-14] MEDS: Furosemide 40 MG Tab PO SCH (12:32)
== END 2022-09-14 12:20 | disposition home health service (06) | DRG 871 ==
LOC: VM.ED 07:11 → VM.MS 08:52
PROVIDERS: ADMIT Internal Medicine; ATTEND Internal Medicine
DX: A41.9 Sepsis, unspecified organism (principal); A41.59 Other Gram-negative sepsis; J44.9 Chronic obstructive pulmonary disease, unspecified; R53.1 Weakness; I50.33 Acute on chronic diastolic (congestive) heart failure; J96.21 Acute and chronic respiratory failure with hypoxia; J44.1 Chronic obstructive pulmonary disease with (acute) exacerbation; N39.0 Urinary tract infection, site not specified; K21.9 Gastro-esophageal reflux disease without esophagitis; N40.0 Benign prostatic hyperplasia without lower urinary tract symptoms; I48.91 Unspecified atrial fibrillation; E66.9 Obesity, unspecified; F34.1 Dysthymic disorder; G47.00 Insomnia, unspecified; F41.9 Anxiety disorder, unspecified; G47.33 Obstructive sleep apnea (adult) (pediatric); N40.1 Benign prostatic hyperplasia with lower urinary tract symptoms; R35.0 Frequency of micturition; E11.65 Type 2 diabetes mellitus with hyperglycemia; T38.0X5A Adverse effect of glucocorticoids and synthetic analogues, initial encounter; E11.42 Type 2 diabetes mellitus with diabetic polyneuropathy; I50.9 Heart failure, unspecified; G25.81 Restless legs syndrome; I11.0 Hypertensive heart disease with heart failure; Z96.659 Presence of unspecified artificial knee joint; E78.00 Pure hypercholesterolemia, unspecified; M54.9 Dorsalgia, unspecified; G89.29 Other chronic pain; Z86.73 Personal history of transient ischemic attack (TIA), and cerebral infarction without residual deficits; Z98.49 Cataract extraction status, unspecified eye; Z88.8 Allergy status to other drugs, medicaments and biological substances; Z99.81 Dependence on supplemental oxygen; Z79.01 Long term (current) use of anticoagulants; Z79.52 Long term (current) use of systemic steroids; Z79.899 Other long term (current) drug therapy; Z98.890 Other specified postprocedural states
CPT/HCPCS: 36415; 36600; 51702; 71045; 73562-RT; 80048; 80053; 81001; 82803; 82947; 83605; 83880; 84443; 84484; 85025; 85610; 87040; 87086; 87088; 87186; 93005; 93010; 94640; 94660; 94668; 94760; 96361; 96365; 96375; 97162-GP; 97165-GO; 99284-25; 99285; A9270-GY; J0696; J1940; J2920; J2930; J3490; J7030; J7512; J7613-GY; J7620-GY